=== PATIENT | male | born 1975 | race Caucasian/White ===

== ENCOUNTER → 2020-01-03 09:54 | Outpatient (BNVA) | payer BC, SELFPAY | PROVIDERS: Family Provider Family Medicine; PCP Family Medicine; Visit Provider Nurse Practitioner | DX: F33.1 Major depressive disorder, recurrent, moderate (principal); F41.0 Panic disorder [episodic paroxysmal anxiety]; F41.1 Generalized anxiety disorder; F43.12 Post-traumatic stress disorder, chronic | CPT/HCPCS: 99214 ==

== ENCOUNTER 2020-03-18 07:22 | Outpatient (CLI) | payer BC, SELFPAY ==
--- NOTE | 2020-03-18 07:40 | NMCV_ITS ---
NM tiarra perf SPECT r/s* [id number] Miguel Ambrosio Age: 45 Gender: M : 1975 Exam Date: 03/18/2020 08:39 Ordering Phys: Aisha Luciano MD ([email or web address]) Technologist: RAQUEL Grayson Exam Location: [facility] Indications: SOB STRESS TEST [facility] IMAGE PROTOCOL Rest/Stress 1 isc Radiopharmaceutical Dose (mCi) Administration Site Administered by Rest: Tc-99m 10.8 IV RAQUEL Alonso Sestamibi Stress:Tc-99m 32.3 IV RAQUEL Alonso Sestamibi Rest: 18-Mar-2020 60 Discovery 630 Stress: 18-Mar-2020 15 Discovery 630 Radiopharmaceutical was injected at 85 % maximum heart rate. Images obtained in supine and prone position. SPECT RESULTS Technical Quality: Excellent Raw Data Analysis: Normal Image Corrections: No attenuation or motion correction applied Summed Stress Score: 0 Summed Rest Score: 0 Summed Difference Score: 0 PERFUSION FINDINGS Small area of basal inferior inferoseptal wall with decreased tracer uptake noted at the rest which showed mild reversibility on the stress images, in the absence of wall motion abnormality most likely it is an artifact. We cannot rule out ischemia as well therefore clinical correlation advised. FUNCTIONAL RESULTS (calculated via Gated SPECT) Stress Image LV EF (%): 72 Stress EDV (mL):110 TID: 0.74 Stress ESV (mL):31 Rest Image LV EF (%): 72 FUNCTIONAL FINDINGS: There is normal left ventricular systolic function. IMPRESSIONS Small area of basal inferior inferoseptal wall with decreased tracer uptake noted at the rest which showed mild reversibility on the stress images, in the absence of wall motion abnormality most likely it is an artifact. We cannot rule out ischemia as well therefore clinical correlation advised. Aisha Luciano MD (Electronically Signed) Final Date: 18 March 2020 15:00 S
--- NOTE | 2020-03-18 07:40 | ECG_ITS ---
NAME OF STUDY: EXERCISE SESTAMIBI STRESS TEST INDICATION: Chest Pain; Shortness of Breath EXERCISE DATA: The patient was exercised by Jaison protocol. Baseline heart rate was 62 beats per minute. Baseline blood pressure was 121/78 millimeters of mercury. Target heart rate was 177 beats per minute. Maximum heart rate achieved was 152, which was 85% of the target heart rate. Maximum blood pressure was 170/85 millimeters of mercury. Total exercise time was 11 minutes 56 seconds. Maximum METs achieved was 10.5, maximum VO2 was 36.8. The reason for ending the test was maximum effort achieved. The patient complained of shortness of breath during the stress test, which then resolved at the end of the test. ELECTROCARDIOGRAM: BASELINE: Showed sinus rhythm, normal axis, inferolateral nonspecific ST-T changes at the baseline noted. EXERCISE: At the peak exercise level, no significant ST-T changes more than what is present at the baseline suggestive of ischemia noted. RECOVERY: During the recovery period, heart rate dropped appropriately. No significant ST-T changes in the recovery suggestive of ischemia noted. CONCLUSION: 1. Exercise capacity good. 2. Heart rate response was appropriate. 3. Blood pressure response was appropriate. 4. Symptoms not suggestive of ischemia. 5. Electrocardiogram portion of the stress test was not suggestive of ischemia. Electronically Signed On 03-21-2020 18:07:10 CDT by Aisha Luciano M.D. [email or web address]
--- NOTE | 2020-03-18 07:52 | USCV_ITS ---
Ambrosio Rivera Age: 45 Gender: M : 1975 Exam Date: 03/18/2020 07:59 Ordering Phys: Aisha Luciano MD ([email or web address]) Technologist: Nel Cohen Exam Location: [facility] [place] Indication: SOB BP: 112 / 59 HR: 67 Rhythm: Sinus Technical Quality: Adequate MEASUREMENTS (Male / Female) Normal Values 2D ECHO LV Diastolic Diameter PLAX 4.0 cm 4.2 - 5.9 / 3.9 - 5.3 cm LV Systolic Diameter PLAX 2.9 cm LV Chamber Size 4.4 cm IVS Diastolic Thickness 1.4 cm 0.6 - 1.0 / 0.6 - 0.9 cm IVS Systolic Thickness 1.1 cm LVPW Diastolic Thickness 2.0 cm 0.6 - 1.0 / 0.6 - 0.9 cm LVPW Systolic Thickness 1.8 cm RV Chamber Size 2.9 cm LVOT Diameter 2.0 cm LV Ejection Fraction 2D Teich 54.5 % LV Ejection Fraction MOD 2C 72.2 % LV Ejection Fraction 2C AL 72.8 % LA Diameter 4.5 cm LA Width 3.3 cm LA Height 4.1 cm RA Width 2.3 cm RA Height 3.6 cm Aorta at Sinotubular Diameter 2.6 cm M-MODE LV Diastolic Diameter MM 5.0 cm 4.2 - 5.9 / 3.9 - 5.3 cm LV Systolic Diameter MM 3.1 cm LV Ejection Fraction MM Teich 68.2 % IVS Diastolic Thickness MM 0.6 cm 0.6 - 1.0 / 0.6 - 0.9 cm IVS Systolic Thickness MM 0.8 cm LVPW Diastolic Thickness MM 0.9 cm 0.6 - 1.0 / 0.6 - 0.9 cm LVPW Systolic Thickness MM 1.4 cm Aortic Annulus Diameter 2.9 cm LA Ao Ratio MM 1.6 MV E Point Septal Separation 0.7 cm DOPPLER AV Peak Velocity 116.0 cm/s LVOT Peak Velocity 107.0 cm/s AV Area Cont Eq vti 2.7 cm squared AV Area Cont Eq pk 3.0 cm squared MV Area PHT 4.4 cm squared Mitral E to A Ratio 1.4 MV E' Velocity 20.0 cm/s Mitral E to MV E' Ratio 4.6 Mitral E to LV E' Lateral Ratio 3.8 Mitral E to LV E' Septal Ratio 5.9 TR Peak Velocity 223.0 cm/s TR Peak Gradient 19.9 mmHg TV Peak E Velocity 68.0 cm/s Right Atrial Pressure 3.0 mmHg Pulmonary Artery Systolic Pressu 22.9 mmHg PV Peak Velocity 75.0 cm/s RV Acceleration Time 0.2 s RV Ejection Time 0.4 s RV AcT/ET 0.6 FINDINGS Left Ventricle Normal left ventricular size, systolic function and wall thickness, with no regional wall motion abnormalities. Normal left ventricular wall thickness. Normal diastolic filling pattern. Left ventricular ejection fraction is estimated at 60 %. Right Ventricle The right ventricle is normal in size and function. Right Atrium The right atrium is normal in size. Left Atrium The left atrium is normal in size. Mitral Valve Structurally normal mitral valve without significant stenosis or prolapse. There is no mitral regurgitation. Aortic Valve Structurally normal aortic valve without significant sclerosis or stenosis. There is no aortic regurgitation. Tricuspid Valve Structurally normal tricuspid valve without significant stenosis or regurgitation. Pulmonary artery systolic pressure is normal. Pulmonic Valve Structurally normal pulmonic valve without significant stenosis. There is no pulmonic regurgitation. Pericardium Normal pericardium without effusion. Aorta Normal ascending aorta dimension. CONCLUSIONS Normal transthoracic echocardiogram. There are no prior echocardiogram studies to compare. Dr. Mikhail Fraser MD (Electronically Signed) Final Date: 18 March 2020 10:18 S
[2020-03-18 07:53] VITALS: BMI 33.7
[2020-03-18 09:45] VITALS: BP 122/84; PULSE 99
== END 2020-03-18 07:23 | disposition home or self-care (01) ==
LOC: RAD 07:28
PROVIDERS: PCP Family Medicine; Visit Provider Internal Medicine Cardiovascular Disease
DX: R06.02 Shortness of breath (principal); R07.9 Chest pain, unspecified
CPT/HCPCS: 78452; 93017; 93306; A9500

== ENCOUNTER → 2020-03-27 08:12 | Outpatient (BNVA) | payer BC, SELFPAY | PROVIDERS: PCP Family Medicine; Visit Provider Nurse Practitioner | DX: F43.12 Post-traumatic stress disorder, chronic (principal); F41.1 Generalized anxiety disorder; F41.0 Panic disorder [episodic paroxysmal anxiety]; F33.1 Major depressive disorder, recurrent, moderate | CPT/HCPCS: 99213 ==

== ENCOUNTER 2020-03-28 13:09 | Emergency (ER) | payer BC, SELFPAY ==
[2020-03-28] VITALS (11 sets, daily range): BP systolic 109–140; BP diastolic 63–81; PULSE 77–90; RESP 17–21; TEMP 36.6; O2SAT 95–98; BMI 33.5
--- NOTE | 2020-03-28 13:17 | ECG_ITS ---
Measurements Intervals Breese Rate: 88 P: 62 RI: 140 QRS: 26 QRSD: 113 T: 45 QT: 350 QTc: 424 SINUS RHYTHM MODERATE INTRAVENTRICULAR CONDUCTION DELAY [110+ ms QRS DURATION] Compared to ECG 05/07/2016 19:32:33 Intraventricular conduction delay now present Electronically Signed On 03-28-2020 15:18:26 CDT by Abhi Preciado M.D. [id number]
--- NOTE | 2020-03-28 13:17 | XRR_ITS ---
PROCEDURE INFORMATION: Exam: XR Chest, 1 View Exam date and time: 03/28/2020 1:53 PM Age: 45 years old Clinical indication: Type not specified; Patient HX: PT states chest pain off/on xseveral days, PT is a current smoker TECHNIQUE: Imaging protocol: XR of the chest Views: 1 view. COMPARISON: No relevant prior studies available. FINDINGS: Lungs: Unremarkable. No consolidation. Pleural space: Unremarkable. No pleural effusion. No pneumothorax. Heart/Mediastinum: Unremarkable. No cardiomegaly. Bones/joints: Unremarkable. XR/XR chest 1V portable [id number] IMPRESSION: No acute findings.
--- NOTE | 2020-03-28 13:24 | PC.NURSE ---
Urine collected and sent to lab
[2020-03-28] MEDS: morphine 4 mg/mL SDV 1 mL IVP (13:29)
[2020-03-28] MEDS: ondansetron 2 mg/ML SDV 2 mL 4 MG IVP (13:30)
[2020-03-28 13:37] LABS: Basophils % 0.4 %; Eosinophils # 0.1 10^3/uL (0.0-0.8); Eosinophils % 1.2 %; Hematocrit 45.7 % (42.0-52.0); Hemoglobin 14.5 g/dL (11.7-16.6); Lymphocytes # 2.2 10^3/uL (0.8-4.8); Lymphocytes % 20.9 %; Mean Corpuscular HGB Conc 31.7 g/dL (30.0-36.0); Mean Corpuscular Volume 94.4 fL (80-94); Mean Platelet Volume 11.9 fL (7.4-10.4); Monocytes # 0.8 10^3/uL (0.2-0.9); Monocytes % 7.1 %; Neutrophils # 7.5 10^3/uL (1.8-7.7); Neutrophils % 70.1 %; Nucleated Red Blood Cells % 0 %; Platelet Count 269 10^3/cmm (130-400); Red Blood Count 4.84 10^6/uL (4.1-5.3); Red Cell Distribution Width 12.4 % (12.1-15.1); White Blood Count 10.7 10^3/uL (4.0-10.0)
--- NOTE | 2020-03-28 13:38 | CTR_ITS ---
PROCEDURE INFORMATION: Exam: CT Angiography Chest With Contrast Exam date and time: 03/28/2020 3:34 PM Age: 45 years old Clinical indication: Sternal or substernal pain; Patient HX: No prior surgery - C/O cp; Additional info: Cp, dizziness TECHNIQUE: Imaging protocol: Computed tomographic angiography of the chest with intravenous contrast. 3D rendering: MIP and/or 3D reconstructed images were created by the technologist. Radiation optimization: All CT scans at this facility use at least one of these dose optimization techniques: automated exposure control; mA and/or kV adjustment per patient size (includes targeted exams where dose is matched to clinical indication); or iterative reconstruction. Contrast material: OMNI 350; Contrast volume: 95 ml; Contrast route: 18G; COMPARISON: CR XR chest 1V portable [id number] 03/28/2020 1:41 PM RADIATION DOSE METRICS: Total DLP: 564.1 mGy-cm FINDINGS: Pulmonary arteries: No pulmonary embolus or aortic dissection. Aorta: Unremarkable. No aortic aneurysm. No aortic dissection. Lungs: Mild paraseptal emphysema. Right discoid atelectasis and/or scarring. Pleural space: Unremarkable. No pneumothorax. No pleural effusion. Heart: Mild LAD calcified coronary artery disease. Lymph nodes: Unremarkable. No enlarged lymph nodes. Liver: 2.2, 2.0 and 1.2 cm low-density lesions in the left liver most consistent with benign hemangiomas versus other benign or malignant lesions. Correlation with nonemergent CT with without contrast versus ultrasound versus MRI with without contrast may be helpful for complete evaluation. Bones/joints: Unremarkable. No acute fracture. Soft tissues: Unremarkable. CT/CT angio chest PE protcl [id number] IMPRESSION: 1. Mild paraseptal emphysema. 2. 2.2, 2.0 and 1.2 cm low-density lesions in the left liver most consistent with benign hemangiomas versus other benign or malignant lesions. Correlation with nonemergent CT with without contrast versus ultrasound versus MRI with without contrast may be helpful for complete evaluation. 3. Mild LAD calcified coronary artery disease. 4. No pulmonary embolus or aortic dissection. Radiation Dose CTDIVOL = (mGy): DLP = 564.1 (mGy-cm)
[2020-03-28 13:43] LABS: D Dimer 0.43 ug/mIFEU (0-0.59)
[2020-03-28 13:49] LABS: Alanine Aminotransferase 13 U/L (0-41); Albumin Level 4.5 g/dL (3.5-5.2); Alkaline Phosphatase 73 IU/L (40-130); Anion Gap 14.8 (5-19); Aspartate Amino Transferase 16 U/L (0-40); Blood Urea Nitrogen 10 mg/dL (6-20); Calcium 9.4 mg/dL (8.5-10.5); Carbon Dioxide 23 mmol/L (22-29); Chloride 102 mmol/L (98-107); Globulin 2.3 g/dL (1.3-4.6); Glomerular Filtration Rate 73.1 mL/min (90-130); Glucose 93 mg/dL (65-115); Osmolality Calculated 278 mOsm/kg (285-295); Potassium 3.8 mmol/L (3.5-5.1); Sodium 136 mmol/L (136-145); Total Bilirubin 0.2 mg/dL (0.15-1.2); Total Protein 6.8 g/dL (6.6-8.7)
[2020-03-28 13:50] LABS: Troponin(5th) Baseline 6 ng/L (0-15)
--- NOTE | 2020-03-28 13:53 | PC.NURSE ---
Patient requested mouth swabs. Checked and okayed with doctor. Two mouth swabs given with a small dipping cup of water..
--- NOTE | 2020-03-28 14:01 | ED_ITS ---
HPI - Chest Pain General: Chief Complaint: Chest Pain Stated Complaint: CHEST PAIN Time Seen by Provider: 03/28/20 13:09 Source: patient and EMS Mode of arrival: EMS Limitations: no limitations History of Present Illness: HPI narrative: 45-year-old male with a recent history of a myocardial infarction a few months ago presents to the emergency department with chest pain that started about 30 minutes prior to presentation. Chest pain is retrosternal with no radiation. He denies nausea or vomiting. No known aggravating or relieving factors. He was given 324 mg of aspirin, and nitro and a Nitropaste by the ambulance crew. complaint: chest pain Pertinent past history: coronary artery disease and prior ME Onset (ago): minute(s) (30) Timing of current episode: constant Prior episodes: No Onset: during rest Pain location: substernal Pain radiation: none Severity: severe Relieving factors: nothing Exacerbating factors: nothing Associated symptoms: Reports nausea; Deny no associated symptoms, abdominal pain, diaphoresis, dyspnea or palpitations Review of Systems General: Reports: 10 or more systems reviewed and unremarkable except in HPI and below Const: Denies: diaphoresis Eyes: Denies: change in vision or blurry vision ENMT: Denies: throat pain, enlarged tonsils, odynophagia, hoarseness, mouth pain or swelling of lips/tongue Card: Reports: chest pain; Denies: palpitations, irregular heart rhythm, edema or swelling of feet/ankles Resp: Denies: dyspnea GI: Reports: nausea; Denies: abdominal pain : Denies: flank pain, dysuria, urinary frequency, urinary urgency or urinary hesitancy Musc: Denies: neck pain, back pain or extremity swelling Skin/Breast: Denies: rash, pruritus or erythema Neuro: Denies: headache(s), numbness in extremities or weakness in extremities Endo: Denies: polyuria, polydipsia or tired all the time [facility] PFSH: Medical History (Updated 03/28/20 @ 16:57 by Mildred Hair MD, [facility] [place]) Generalized anxiety disorder Major depressive disorder, recurrent, moderate Panic disorder [episodic paroxysmal anxiety] Post-traumatic stress disorder, chronic Shortness of breath Social History Smoking and tobacco status: current every day smoker cigarettes Packs smoked per day: 1 Smoking risk assessment/counseling performed?: Yes Tobacco counseling given: counseling >3 minutes Physical Exam Const: COMMON NORMALS: no acute distress, average body habitus, patient oriented x3, no limitations, healthy appearing, alert and well nourished Eye: COMMON NORMALS: Equal, round and reactive pupils present, EOMs intact bilaterally, conjunctivae normal and no scleral icterus CONJUNCTIVA: Yes conjunctivae normal PUPIL: Yes Equal, round and reactive pupils present Neck/C-Spine: COMMON NORMALS: no meningeal signs and no JVD Resp: COMMON NORMALS: normal respiratory effort, No retractions, No use of accessory muscles, clear to auscultation bilaterally and percussion normal AUSCULTATION: clear to auscultation bilaterally PERCUSSION: percussion normal Cardio: COMMON NORMALS: no JVD, regular rate, regular rhythm, S1 normal heart sound present, S2 normal heart sound present, No gallops present (Cardio), No clicks present (Cardio), No murmurs present (Cardio), No rub (Cardio) and Peripheral pulses 2+ throughout RATE: regular rate RHYTHM: regular rhythm HEART SOUNDS: S1 normal heart sound present and S2 normal heart sound present PERIPHERAL PULSES: Peripheral pulses 2+ throughout GI: COMMON NORMALS: Normal to inspection, nondistended, normoactive bowel sounds present, Soft to palpation, non-tender, No hepatosplenomegaly present, no masses and no bruits PALPATION: Yes Soft to palpation and Yes No hepatosplenomegaly present : COMMON NORMALS: Yes no CVA tenderness BLADDER/KIDNEY EXAM: Yes no CVA tenderness Back/Pelvis: COMMON NORMALS: no CVA tenderness Extremity: COMMON NORMALS: normal to inspection, full ROM, capillary refill normal, no calf tenderness and no pedal edema Neuro: COMMON NORMALS: patient oriented x3 SENSORIUM/ORIENTATION: Yes alert MENINGEAL SIGNS: Yes no meningeal signs Skin: COMMON NORMALS: no rashes or lesions noted, no wounds, turgor normal, no jaundice, no petechiae and no mottling GENERAL SKIN EXAM: no rashes or lesions noted and turgor normal Course Reevaluation(s): Reevaluation #1: Discussed his lab and imaging findings with the patient and his . Negative for acute findings. Negative high- sensitivity troponin x2. 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 They voiced understanding and are in agreement with the plan. Time: 16:56 Vital Signs: Vital signs: Vital Signs Temperature 97.8 F 03/28/20 17:11 Pulse Rate 77 03/28/20 17:11 Respiratory Rate 18 03/28/20 17:11 Blood Pressure 126/75 03/28/20 17:11 Pulse Oximetry 96 03/28/20 17:11 MDM - Chest Pain MDM Narrative: Medical decision making narrative: 45-year-old male who presented to the emergency department with chest pain. Cardiac evaluation is unremarkable with negative high-sensitivity troponins and 2. He is discharged home with no new orders. Lab Data: Labs: Lab Results 03/28/20 03/28/20 03/28/20 Range/Units 12:10 12:10 12:10 WBC 10.7 H (4.0-10.0) 10^3/ uL RBC 4.84 (4.1-5.3) 10^6/u L Hgb 14.5 (11.7-16.6) g/dL Hct 45.7 (42.0-52.0) % MCV 94.4 H (80-94) fL MCH 30.0 (28.0-34.0) pg MCHC 31.7 (30.0-36.0) g/dL RDW 12.4 (12.1-15.1) % Plt Count 269 (130-400) 10^3/c mm MPV 11.9 H (7.4-10.4) fL Neut % (Auto) 70.1 % Lymph % (Auto) 20.9 % [place] % (Auto) 7.1 % Eos % (Auto) 1.2 % Baso % (Auto) 0.4 % Neut # (Auto) 7.5 (1.8-7.7) 10^3/u L Lymph # (Auto) 2.2 (0.8-4.8) 10^3/u L [place] # (Auto) 0.8 (0.2-0.9) 10^3/u L Eos # (Auto) 0.1 (0.0-0.8) 10^3/u L Baso # (Auto) 0.0 (0.0-0.1) 10^3/u L Nucleated RBC % (a uto) 0 % Nucleated RBCs # 0.0 /100WBC D-Dimer 0.43 (0-0.59) ug/mIFE U Sodium 136 (136-145) mmol/L Potassium 3.8 (3.5-5.1) mmol/L Chloride 102 (98-107) mmol/L Carbon Dioxide 23 (22-29) mmol/L Anion Gap 14.8 (5-19) BUN 10 (6-20) mg/dL Creatinine 1.1 (0.7-1.2) mg/dL GFR Calculation 73.1 L (90-130) mL/min Glucose 93 (65-115) mg/dL Calculated Osmolal ity 278 L (285-295) mOsm/k g Calcium 9.4 (8.5-10.5) mg/dL Total Bilirubin 0.2 (0.15-1.2) mg/dL AST 16 (0-40) U/L ALT 13 (0-41) U/L Alkaline Phosphata se 73 (40-130) IU/L Troponin T Baselin e (0-15) ng/L Troponin T 120 Min lu (0-15) ng/L Delta Troponin T (0-10) ABS# Total Protein 6.8 (6.6-8.7) g/dL Albumin 4.5 (3.5-5.2) g/dL Globulin 2.3 (1.3-4.6) g/dL Lipase (13-60) U/L 03/28/20 03/28/20 03/28/20 Range/Units 12:10 13:10 14:43 WBC (4.0-10.0) 10^3/ uL RBC (4.1-5.3) 10^6/u L Hgb (11.7-16.6) g/dL Hct (42.0-52.0) % MCV (80-94) fL MCH (28.0-34.0) pg MCHC (30.0-36.0) g/dL RDW (12.1-15.1) % Plt Count (130-400) 10^3/c mm MPV (7.4-10.4) fL Neut % (Auto) % Lymph % (Auto) % [place] % (Auto) % Eos % (Auto) % Baso % (Auto) % Neut # (Auto) (1.8-7.7) 10^3/u L Lymph # (Auto) (0.8-4.8) 10^3/u L [place] # (Auto) (0.2-0.9) 10^3/u L Eos # (Auto) (0.0-0.8) 10^3/u L Baso # (Auto) (0.0-0.1) 10^3/u L Nucleated RBC % (a uto) % Nucleated RBCs # /100WBC D-Dimer (0-0.59) ug/mIFE U Sodium (136-145) mmol/L Potassium (3.5-5.1) mmol/L Chloride (98-107) mmol/L Carbon Dioxide (22-29) mmol/L Anion Gap (5-19) BUN (6-20) mg/dL Creatinine (0.7-1.2) mg/dL GFR Calculation (90-130) mL/min Glucose (65-115) mg/dL Calculated Osmolal ity (285-295) mOsm/k g Calcium (8.5-10.5) mg/dL Total Bilirubin (0.15-1.2) mg/dL AST (0-40) U/L ALT (0-41) U/L Alkaline Phosphata se (40-130) IU/L Troponin T Baselin e 6 (0-15) ng/L Troponin T 120 Min lu 6.00 (0-15) ng/L Delta Troponin T 0 (0-10) ABS# Total Protein (6.6-8.7) g/dL Albumin (3.5-5.2) g/dL Globulin (1.3-4.6) g/dL Lipase 20 (13-60) U/L Imaging Data^: CXR: Radiologist's impression: [address] [address] XRay Report Signed Patient: Ambrosio Rivera #: [id number] : 1975Acct#:[id number] Age/Sex: 45 / MADM Date: 03/28/20 Loc: ERRoom/Bed: Attending Dr: Ordering Provider/Ordering MD: Mildred Hair MD, [facility] [place] Date of Service: 03/28/20 Procedure(s): XR chest 1V portable [id number] Accession Number(s): [id number] Report Number: [id number] PROCEDURE INFORMATION: Exam: XR Chest, 1 View Exam date and time: 03/28/2020 1:53 PM Age: 45 years old Clinical indication: Type not specified; Patient HX: PT states chest pain off/on xseveral days, PT is a current smoker TECHNIQUE: Imaging protocol: XR of the chest Views: 1 view. COMPARISON: No relevant prior studies available. FINDINGS: Lungs: Unremarkable. No consolidation. Pleural space: Unremarkable. No pleural effusion. No pneumothorax. Heart/Mediastinum: Unremarkable. No cardiomegaly. Bones/joints: Unremarkable. XR/XR chest 1V portable [id number] IMPRESSION: No acute findings. Dictated By:Antoine West MD Signed By:Antoine West MDSigned Date/Time:03/28/201446 DD/ 144 CTA Chest: Radiologist's impression: [place] [address] CT Scan Report Signed Patient: Ambrosio Rivera #: [id number] : 1975Acct#:[id number] Age/Sex: 45 / MADM Date: 03/28/20 Loc: [facility]/Bed: Attending Dr: Ordering Provider/Ordering MD: Mildred Hair MD, [facility] [place] Date of Service: 03/28/20 Procedure(s): CT angio chest PE protcl [id number] Accession Number(s): [id number] Report Number: [id number] PROCEDURE INFORMATION: Exam: CT Angiography Chest With Contrast Exam date and time: 03/28/2020 3:34 PM Age: 45 years old Clinical indication: Sternal or substernal pain; Patient HX: No prior surgery - C/O cp; Additional info: Cp, dizziness TECHNIQUE: Imaging protocol: Computed tomographic angiography of the chest with intravenous contrast. 3D rendering: MIP and/or 3D reconstructed images were created by the technologist. Radiation optimization: All CT scans at this facility use at least one of these dose optimization techniques: automated exposure control; mA and/or kV adjustment per patient size (includes targeted exams where dose is matched to clinical indication); or iterative reconstruction. Contrast material: OMNI 350; Contrast volume: 95 ml; Contrast route: 18G; COMPARISON: CR XR chest 1V portable [id number] 03/28/2020 1:41 PM RADIATION DOSE METRICS: Total DLP: 564.1 mGy-cm FINDINGS: Pulmonary arteries: No pulmonary embolus or aortic dissection. Aorta: Unremarkable. No aortic aneurysm. No aortic dissection. Lungs: Mild paraseptal emphysema. Right discoid atelectasis and/or scarring. Pleural space: Unremarkable. No pneumothorax. No pleural effusion. Heart: Mild LAD calcified coronary artery disease. Lymph nodes: Unremarkable. No enlarged lymph nodes. Liver: 2.2, 2.0 and 1.2 cm low-density lesions in the left liver most consistent with benign hemangiomas versus other benign or malignant lesions. Correlation with nonemergent CT with without contrast versus ultrasound versus MRI with without contrast may be helpful for complete evaluation. Bones/joints: Unremarkable. No acute fracture. Soft tissues: Unremarkable. CT/CT angio chest PE protcl [id number] IMPRESSION: 1. Mild paraseptal emphysema. 2. 2.2, 2.0 and 1.2 cm low-density lesions in the left liver most consistent with benign hemangiomas versus other benign or malignant lesions. Correlation with nonemergent CT with without contrast versus ultrasound versus MRI with without contrast may be helpful for complete evaluation. 3. Mild LAD calcified coronary artery disease. 4. No pulmonary embolus or aortic dissection. Radiation Dose CTDIVOL = (mGy): DLP = 564.1 (mGy-cm) Dictated By:Antoine West MD Signed By:Antoine West MDSigned Date/Time:03/28/201636 DD/ 35 EKG Data^: EKG 1: Attestation: I personally reviewed and interpreted this EKG as follows: EKG interpretation date: 03/28/20 EKG interpretation time: 13:21 Prior EKG tracings: not available for review Interpretation: Sinus rhythm. Heart rate 88 beats per minutes. No ST changes. EKG 2: Attestation: I personally reviewed and interpreted this EKG as follows: EKG interpretation date: 03/28/20 EKG interpretation time: 15:30 Prior EKG tracings: available for review Interpretation: Normal sinus rhythm. Heart rate [address] changes. Normal axis. Unchanged from earlier today. Discharge Plan Discharge Patient Disposition: Home, Self-Care Clinical Impression: Chest pain Qualifiers: Chest pain type: unspecified Qualified Code(s): R07.9 - Chest pain, unspecified Condition: Stable Prescriptions: Continued ropinirole 1 mg tablet 0.5 mg PO TID RF: 0 ropinirole 2 mg tablet 2 mg PO BEDTIME RF: 0 fluoxetine [Prozac] 40 mg capsule 40 mg PO DAILY Qty: 30 RF: 2 acetaminophen-codeine 300-30 mg tablet 1 tab PO TID PRN (Reason: Pain) RF: 0 albuterol sulfate 2.5 mg /3 mL (0.083 %) solution for nebulization 2.5 mg INHALATION QID PRN (Reason: Shortness Of Breath) RF: 0 albuterol sulfate [ProAir HFA] 90 mcg/actuation HFA aerosol inhaler 2 puff INHALATION Q6H PRN (Reason: Shortness Of Breath) RF: 0 Flovent HFA 220 mcg/actuation HFA aerosol inhaler 1 puff INHALATION BID RF: 0 fluticasone propionate [Flonase Allergy Relief] 50 mcg/actuation spray,suspension 1 spray INTRANASAL DAILY RF: 0 meloxicam 15 mg tablet 15 mg PO DAILY RF: 0 omeprazole 20 mg capsule,delayed release(DR/EC) 20 mg PO DAILY RF: 0 prazosin 5 mg capsule 5 mg PO BID RF: 0 isosorbide mononitrate 30 mg tablet extended release 24 hr 15 mg PO BID Qty: 90 RF: 3 Chantix 1 mg Tablet 1 mg PO BID RF: 0 Discharge Orders: Discharge Order (Routine); Ordered 03/28/20 Ordered By: Mildred Hair Referrals: Aisha Luciano MD [Physician] - 1-3 days Tamara Crespo MD [Primary Care Provider] - 4-7 days Patient Instructions: Chest Pain (ED) Activity Restrictions/Additional Instructions: Return for any new or worsening symptoms. Follow-up with your estimator paperboard boxes in the next 3 days and with your primary care provider within 1 week. Continue home medications as prescribed. Discharge Date/Time: 06/13/20 17:12 Coding Level of Care Code ED Mechanical Project Manager for Chg Fwd Exam Comprehensive
[2020-03-28 14:08] LABS: Lipase 20 U/L (13-60)
[2020-03-28 15:13] LABS: Troponin 5 2HR Delta 0 ABS# (0-10)
--- NOTE | 2020-03-28 15:17 | ECG_ITS ---
Measurements Intervals [place] Rate: 88 P: 62 MD: 140 QRS: 26 QRSD: 113 T: 45 QT: 350 QTc: 424 SINUS RHYTHM MODERATE INTRAVENTRICULAR CONDUCTION DELAY [110+ ms QRS DURATION] Compared to ECG 05/07/2016 19:32:33 Intraventricular conduction delay now present Electronically Signed On 03-29-2020 21:07:52 CDT by Abhi Preciado M.D. [email or web address]
[2020-03-28] MEDS: iohexol 350 mg/mL 100 mL Btl IV (17:37)
--- NOTE | 2020-03-28 19:17 | ECG_ITS ---
Measurements Intervals [place] Rate: 84 P: 55 ND: 147 QRS: 24 QRSD: 93 T: 44 QT: 366 QTc: 435 SINUS RHYTHM Compared to ECG 03/28/2020 13:21:27 Intraventricular conduction delay no longer present Electronically Signed On 03-29-2020 21:08:10 CDT by Abhi Preciado M.D. [email or web address]
--- NOTE | 2020-04-01 09:23 | DCPLANNER ---
data center manager had message to schedule a follow up appointment for patient with [facility]. data center manager called [facility], spoke with Elysia, gave clinic patients information. data center manager was told that patients information would be printed and reviewed. Clinic will call patient with appointment information.
--- NOTE | 2020-04-02 08:29 | DCPLANNER ---
Patient has a follow up appointment for patient with [facility], scheduled for Tuesday, April 07, 2020 at 3:[address] Luciano. Clinic will call patient with appointment information.
--- NOTE | 2020-04-10 14:01 | DCPLANNER ---
Patient did attend appointment scheduled for 04.07.20 with [facility]. Patient did attend the appointment.
== END 2020-03-28 17:12 | disposition home or self-care (01) ==
PROVIDERS: Emergency Provider Family Medicine; PCP Family Medicine
DX: R07.9 Chest pain, unspecified (principal); F17.210 Nicotine dependence, cigarettes, uncomplicated
CPT/HCPCS: 12345; 71045; 71275; 80053; 83690; 84484; 85025; 85378; 93005; 96374; 96375; 99283; 99284; J2270; J2405; Q9967

== ENCOUNTER → 2020-06-12 09:54 | Outpatient (BNVA) | payer BC, SELFPAY | PROVIDERS: PCP Family Medicine; Visit Provider Internal Medicine | DX: Z11.59 Encounter for screening for other viral diseases (principal) | CPT/HCPCS: 87635 ==

== ENCOUNTER 2020-06-15 07:51 | Outpatient (CLI) | payer BC, SELFPAY ==
--- NOTE | 2020-06-15 14:43 | PFTS_ITS ---
Date of Study:06/15/20 Date of Dictation: MECHANICS: Forced vital capacity (FVC) is normal. Forced expiratory volume in one second (FEV1) is normal. FEV1/FVC is normal. FLOW VOLUME LOOP: Scooping at lower lung volumes. LUNG VOLUMES: Total lung capacity (TLC) is normal. Residual volume (RV) is increased. DIFFUSING CAPACITY FOR CARBON MONOXIDE: Mild reduced. INTERPRETATION: The spirometry is normal. There is no significant postbronchodilator response. The flow volume loop is consistent with small airways disease. Lung volumes are consistent with air trapping. Gas exchange (DLCO) is mildly reduced. MTDD
== END 2020-06-15 07:52 | disposition home or self-care (01) ==
LOC: RT 07:51
PROVIDERS: PCP Family Medicine; Visit Provider Internal Medicine Pulmonary Disease
DX: J43.9 Emphysema, unspecified (principal); F17.290 Nicotine dependence, other tobacco product, uncomplicated; K76.9 Liver disease, unspecified; R06.02 Shortness of breath; F41.1 Generalized anxiety disorder
CPT/HCPCS: 94060; 94726; 94729; J7611

== ENCOUNTER 2020-08-18 15:03 | Outpatient (CLI) | payer BC, SELFPAY ==
--- NOTE | 2020-08-18 15:14 | MRR_ITS ---
PROCEDURE INFORMATION: Exam: MR Abdomen Without Contrast; Liver Exam date and time: 08/18/2020 3:26 PM Age: 45 years old Clinical indication: Condition or disease; Liver condition; Hepatomegaly or mass; Patient HX: History of liver mass -no symptoms; Additional info: Liver mass/hepatomegaly TECHNIQUE: Imaging protocol: MR Abdomen without contrast. Exam focused on the liver. COMPARISON: CT abdomen pelvis w con* [id number] 12/04/2016 7:56 PM FINDINGS: Lungs: Visualized lungs are clear. Pleura: No pleural effusion. Heart: Visualized portions of the heart are unremarkable. Liver: There are 4 masses in the liver that are low on T1 and high on T2 and show peripheral puddling enhancement with central filling on the postcontrast sequences. Findings are consistent with multiple hemangiomas. The largest measures 2.4 x 2.2 cm (series 9, image 25). These are stable dating back to 12/04/2016. Gallbladder and bile ducts: Stable findings consistent with a previous cholecystectomy. No biliary ductal dilatation. Pancreas: The pancreas is unremarkable. No pancreatic ductal dilatation. Spleen: The spleen is unremarkable. Adrenals: The right and left adrenal glands are unremarkable. Kidneys and ureters: The right kidney is unremarkable. Simple cyst in the left kidney measuring 9.5 mm (series 6, image 10). The visualized right and left ureters are unremarkable. Stomach and bowel: The visualized bowel is unremarkable. Intraperitoneal space: No ascites. Vasculature: No evidence for aortic aneurysm or aortic dissection. Hepatic veins, portal veins, splenic vein, and SMV are patent. Lymph nodes: No lymphadenopathy. Soft tissues: No acute abnormality in the extra-abdominal soft tissues. MR/MR abdomen wo/w con* [id number] IMPRESSION: 1. Multiple hepatic foci consistent with hepatic hemangiomas. Findings are stable dating back to 12/04/2016. 2. Incidental/nonacute findings are listed in the report. COMMENTS: Consistent with the [employer]'s Incidental Findings Committee white paper (J Am Dewey Radiol 2018): Any incidental renal lesion less than 1 cm or classified as too small to characterize, or any incidental cystic renal lesion characterized as simple-appearing, is likely benign. No follow-up imaging is recommended for these lesions per consensus recommendations based on imaging criteria.
== END 2020-08-18 15:04 | disposition home or self-care (01) ==
LOC: RADWPI 15:05
PROVIDERS: PCP Family Medicine; Visit Provider Family Medicine
DX: R16.0 Hepatomegaly, not elsewhere classified (principal)
CPT/HCPCS: 74183; A9579

== ENCOUNTER → 2021-01-06 16:42 | Outpatient (BNVA) | payer OTHER, SELFPAY | PROVIDERS: PCP Family Medicine; Visit Provider Nurse Practitioner Family | DX: Z20.822 Contact with and (suspected) exposure to COVID-19 (principal) | CPT/HCPCS: 87635 ==

== ENCOUNTER 2021-12-02 17:19 | Emergency (ER) | payer MEDICAID, SELFPAY ==
[2021-12-02 17:23] VITALS: BP 144/95; PULSE 81; RESP 16; TEMP 36.9; O2SAT 99; BMI 33.2
--- NOTE | 2021-12-02 17:34 | ED_ITS ---
HPI - Eye Problem General: Chief complaint: Eye Problems Stated complaint: eyes itch an burn Time Seen by Provider: 12/02/21 17:28 History of Present Illness: Patient is a 46-year-old male who comes to the ED with bilateral eye redness. Patient says both eyes are very itchy as well. Symptoms started approximately 1 week ago. He is having a lot of itching in both eyes and says his left eye though is more red itchy and funk a little. He also has a little bit of purulent discharge on the left eye in the mornings. Patient was using some previously prescribed TobraDex eye ointment for the past couple days and it has not helped. Endorses some blurry vision with his eyes watering but denies any other vision changes or eye pain. Denies any foreign body in eye to cause symptoms. Associated symptoms: Denies fever(s), headache(s), nausea, neck pain or vomiting Review of Systems Const: Denies: fever(s), chills or fatigue Eyes: Reports: blurry vision (Vision left eye from his eyes watering.), eye discharge (left eye, purulent discharge in mornings) and eye redness (bilateral eyes); Denies: change in vision or eye discomfort ENMT: Denies: throat pain, odynophagia, nasal discharge or nasal congestion Card: Denies: chest pain, palpitations, edema, swelling of feet/ankles, dyspnea on exertion or orthopnea Resp: Denies: dyspnea, productive cough or non-productive cough GI: Denies: abdominal pain, nausea, vomiting, diarrhea, constipation or hematochezia : Denies: flank pain, difficulty urinating, dysuria or hematuria Musc: Denies: neck pain, back pain or extremity swelling Skin/Breast: Denies: rash or new lesions Neuro: Denies: headache(s), numbness in extremities or weakness in extremities PFSH ED PFSH: Medical History Chest pain Generalized anxiety disorder HTN (hypertension), benign Major depressive disorder, recurrent, moderate Panic disorder [episodic paroxysmal anxiety] Post-traumatic stress disorder, chronic Shortness of breath Family History Other CAD (coronary artery disease) Cancer Dementia Diabetes Family history of premature coronary artery disease Hyperlipidemia Hypertension Lung disease Stroke Denies family history of Chronic kidney disease (CKD) Social History Smoking and tobacco status: current every day smoker cigarettes Packs smoked per day: 0.5 Years cigarettes smoked: 30 Quit status (tobacco): considering quitting Second hand smoke exposure: Yes Smoking risk assessment/counseling performed?: Yes Tobacco counseling given: counseling >3 minutes Alcohol intake: never Lives independently: Yes Household members: spouse Housing: House Marital status: Life Partner Current occupational status: unemployed Pets and animals: Yes History of recent travel: No ([facility]) Current gender identity: Male Physical Exam Const: COMMON NORMALS: no acute distress, patient oriented x3 and alert GENERAL APPEARANCE: cooperative and comfortable HENMT: COMMON NORMALS: normocephalic HEAD & SCALP: normocephalic MOUTH: Normal oral and palatal mucosa present THROAT: posterior oropharynx normal and uvula midline Eye: COMMON NORMALS: Equal, round and reactive pupils present PERIORBITAL: periorbital findings normal EYELID: eyelids normal CONJUNCTIVA: Yes conjunctival abnormal positive right conjunctival injection diffuse and positive left (Left eye more red than right) conjunctival injection diffuse CORNEA: Yes corneas normal (Right right eye fluorescein eye exam was normal) and fluorescein used (left eye-Small linear abrasion noted after fluorescein with lamp exam) PUPIL: Yes Equal, round and reactive pupils present OTHER: No foreign body seen. Neck/C-Spine: COMMON NORMALS: supple GENERAL: Yes normal visual inspection Resp: COMMON NORMALS: normal respiratory effort, No retractions, No use of accessory muscles and clear to auscultation bilaterally AUSCULTATION: clear to auscultation bilaterally Cardio: COMMON NORMALS: regular rate, regular rhythm, S1 normal heart sound present, S2 normal heart sound present, No gallops present (Cardio), No clicks present (Cardio), No murmurs present (Cardio) and Peripheral pulses 2+ throughout RATE: regular rate RHYTHM: regular rhythm HEART SOUNDS: S1 normal heart sound present and S2 normal heart sound present PERIPHERAL PULSES: Peripheral pulses 2+ throughout GI: COMMON NORMALS: Normal to inspection, nondistended, normoactive bowel sounds present, Soft to palpation, non-tender and no masses PALPATION: Yes Soft to palpation : COMMON NORMALS: Yes no CVA tenderness BLADDER/KIDNEY EXAM: Yes no CVA tenderness Back/Pelvis: COMMON NORMALS: no CVA tenderness Extremity: COMMON NORMALS: normal to inspection Neuro: COMMON NORMALS: patient oriented x3 SENSORIUM/ORIENTATION: Yes alert Skin: GENERAL SKIN EXAM: dry skin Course Vital Signs: Vital signs: Vital Signs Temperature 98.5 F 12/02/21 17:23 Pulse Rate 81 12/02/21 17:23 Respiratory Rate 16 12/02/21 17:23 Blood Pressure 144/95 12/02/21 17:23 Pulse Oximetry 99 12/02/21 17:23 MDM - Eye Problem Medical Decision Making Patient is a 46-year-old male comes to the ED with red and itchy by lateral eyes. Patient says his left eye though has gotten a lot worse and he has some purulent drainage in the mornings. He is also feeling a little bit of stinging pain in his left a. Denies any vision changes. Vitals stable. Bilateral conjunctivitis noted both eyes. No foreign body seen. Fluorescein dye exam performed in both right left eye and left eye had a linear abrasion noted. Patient was diagnosed with conjunctivitis and corneal abrasion. He was discharged home with Maxitrol eyedrops. He was told to follow-up with his do ctor in the next couple days or return to the ED for eye doctor in the next 24 to 48 hours if symptoms worsen. Patient understood and agree with plan. Discharge Plan Discharge Patient Disposition: Home Clinical Impression: Conjunctivitis Qualifiers: Conjunctivitis type: acute Acute conjunctivitis type: unspecified Laterality: bilateral Qualified Code(s): H10.33 - Unspecified acute conjunctivitis, bilateral Corneal abrasion Qualifiers: Encounter type: initial encounter Laterality: left Qualified Code(s): S05.02XA - Injury of conjunctiva and corneal abrasion without foreign body, left eye, initial encounter Condition: Stable Prescriptions: New Maxitrol 3.5mg/mL-10,000 unit/mL-0.1 % drops,suspension 2 drp ophthalmic (eye) Q8H 7 Days Qty: 5 0RF No Action ropinirole 1 mg tablet 0.5 mg PO TID 0RF ropinirole 2 mg tablet 3 mg PO BEDTIME 0RF fluoxetine [Prozac] 40 mg capsule 40 mg PO DAILY Qty: 30 2RF acetaminophen-codeine 300-30 mg tablet 1 tab PO TID PRN (Reason: Pain) 0RF albuterol sulfate 2.5 mg /3 mL (0.083 %) solution for nebulization 2.5 mg INHALATION QID PRN (Reason: Shortness Of Breath) 0RF albuterol sulfate [ProAir HFA] 90 mcg/actuation HFA aerosol inhaler 2 puff INHALATION Q6H PRN (Reason: Shortness Of Breath) 0RF meloxicam 15 mg tablet 15 mg PO DAILY 0RF omeprazole 20 mg capsule,delayed release(DR/EC) 20 mg PO DAILY 0RF prazosin 5 mg capsule 5 mg PO BID 0RF isosorbide mononitrate 30 mg tablet extended release 24 hr 15 mg PO BID Qty: 90 3RF aspirin [Adult Aspirin Regimen] 81 mg tablet,delayed release (DR/EC) 81 mg PO DAILY 0RF Bevespi Aerosphere 9-4.8 mcg HFA aerosol inhaler 2 puff INHALATION BID Qty: 10.7 5RF Chantix 1 mg Tablet 1 mg PO BID 0RF Rx Instructions: (as directed) Discharge Orders: Discharge ED (Routine); Ordered 12/02/21 Ordered By: Donald Orellana Referrals: Tamara Crespo MD [Primary Care Provider] - Discharge Diet: Regular Discharge Activity: Increase activity as tolerated Patient Instructions: Corneal Abrasion (DC), Conjunctivitis (ED) Activity Restrictions/Additional Instructions: Follow-up with medical provider as directed in the next 3 to 5 days for reevaluation. Take medications as prescribed. If symptoms start worsening or you start having vision changes return to the ED or eye doctor immediately for reevaluation. Please read and understand discharge instructions. Thank you for choosing [facility] for your healthcare needs today. Please realize this is an emergency room and that we are providing you with a medical screening exam and this may not be complete and all inclusive of all the testing and or work up that you may need to determine your ailment or severity of your illness. It is very important that you follow up as instructed or that you return to the Emergency Department should you have concerns or if your condition changes or worsens in any way. Coding Level of Care Code ED Curriculum Development Coordinator for Dylan Fwkathy Exam Comprehensive
[2021-12-02] MEDS: fluorescein 1 mg Strip EYE-BOTH (17:48)
[2021-12-02] MEDS: eye irrigation 30 mL Btl EYE-BOTH (18:13)
[2021-12-04 20:03] LABS: Quest SARS-CoV-2 RNA NOT DETECTED (NOT DETECTED)
== END 2021-12-02 18:16 | disposition home or self-care (01) ==
PROVIDERS: Emergency Provider Physician Assistant; PCP Family Medicine
DX: H10.33 Unspecified acute conjunctivitis, bilateral (principal); S05.02XA Injury of conjunctiva and corneal abrasion without foreign body, left eye, initial encounter; Z79.82 Long term (current) use of aspirin; I10 Essential (primary) hypertension; F17.210 Nicotine dependence, cigarettes, uncomplicated; Z20.822 Contact with and (suspected) exposure to COVID-19; X58.XXXA Exposure to other specified factors, initial encounter
CPT/HCPCS: 87635; 99283; 99291; 99292

== ENCOUNTER 2022-05-24 17:17 | Emergency (ER) | payer MEDICAID, SELFPAY ==
--- NOTE | 2022-05-24 17:19 | XRR_ITS ---
PROCEDURE INFORMATION: Exam: XR Left Hand Exam date and time: 05/24/2022 6:23 PM Age: 47 years old Clinical indication: Swelling; Hand; Left; Additional info: L hand swelling TECHNIQUE: Imaging protocol: Radiologic exam of the Left hand. Views: 3 or more views. COMPARISON: No relevant prior studies available. FINDINGS: Bones/joints: Normal. Soft tissues: Mild diffuse nonspecific soft tissue prominence. XR/XR hand LT min 3V* [id number] IMPRESSION: 1. No acute bony findings. 2. Mild diffuse nonspecific soft tissue prominence.
[2022-05-24 17:28] VITALS: BP 154/97; PULSE 91; RESP 16; TEMP 36.8; O2SAT 99; BMI 34.2
--- NOTE | 2022-05-24 19:58 | W.ED.GENADLT ---
Documented by User: Eulalio Cruz MD 05/24/22 20:40 HPI - General Adult General: Chief complaint: Skin/Abscess/Foreign Body Stated complaint: Left hand swollen Time Seen by Provider: 05/24/22 19:50 History of Present Illness: Patient is a 47-year-old male with a history of hypertension PTSD presenting to the emergency room with concerns of left hand swelling. Patient was cutting the thorns of rebel on Monday when he he was stuck by a rebel on his middle finger and at the base of his pinky finger. Since then, patient has noticed a boil at the base of the pinky finger on the dorsal aspect that has spread on his hand. Patient denies any fever but reports significant pain and swelling in the hand. He denies any fever or chills reports the pain that tracks up the inner aspect of his forearm. Onset:2 days ago Duration:2 days Location:home Severity:moderate Associated symptoms: Deny chest pain, dyspnea, nausea, rash, palpitations or vomiting Review of Systems Const: Denies: fever(s) or chills Eyes: Denies: change in vision ENMT: Denies: mouth pain Card: Denies: chest pain or palpitations Resp: Denies: dyspnea or non-productive cough GI: Denies: abdominal pain, nausea, vomiting or diarrhea : Denies: dysuria Musc: Reports: extremity pain (+L hand swelling and pain) Skin/Breast: Denies: rash or new lesions Neuro: Denies: weakness in extremities Psych: Reports: other (Normal mood) Jimmy/Lymph: Denies: easy bruising PFS ED PFSH: Medical History Chest pain Generalized anxiety disorder HTN (hypertension), benign Major depressive disorder, recurrent, moderate Panic disorder [episodic paroxysmal anxiety] Post-traumatic stress disorder, chronic Shortness of breath Family History Other CAD (coronary artery disease) Cancer Dementia Diabetes Family history of premature coronary artery disease Hyperlipidemia Hypertension Lung disease Stroke Denies family history of Chronic kidney disease (CKD) Social History Smoking and tobacco status: current every day smoker cigarettes Packs smoked per day: 0.5 Years cigarettes smoked: 30 Quit status (tobacco): considering quitting Second hand smoke exposure: Yes Smoking risk assessment/counseling performed?: Yes Tobacco counseling given: counseling >3 minutes Alcohol intake: never Lives independently: Yes Household members: spouse Housing: House Marital status: Life Partner Current occupational status: unemployed Pets and animals: Yes History of recent travel: No ([facility]) Current gender identity: Male Physical Exam Const: COMMON NORMALS: alert HENMT: COMMON NORMALS: atraumatic HEAD & SCALP: atraumatic MOUTH: moist mucous membranes not abnormal Eye: COMMON NORMALS: EOMs intact bilaterally and conjunctivae normal CONJUNCTIVA: Yes conjunctivae normal Neck/C-Spine: COMMON NORMALS: full ROM and supple Resp: COMMON NORMALS: normal respiratory effort and clear to auscultation bilaterally AUSCULTATION: clear to auscultation bilaterally Cardio: COMMON NORMALS: regular rate RATE: regular rate GI: COMMON NORMALS: Soft to palpation and non-tender PALPATION: Yes Soft to palpation Extremity: COMMON NORMALS: full ROM NARRATIVE EXTREMITY EXAM: +swelling over the L hand worse at the base of the 5th metacarpal with extension over the dorsal and volar surfaces with moderate tenderness to palpation, intact in the ulnar/median/radial distribution of the left hand, cap refill less than 3 seconds in the digits Neuro: SENSORIUM/ORIENTATION: Yes alert MOTOR EXAM: No Abnormal motor strength present and Other motor observations present (no focal motor deficits) Psych: COMMON NORMALS: speech normal SPEECH: Yes normal speech MOOD & AFFECT: Yes euthymic mood Course Vital Signs: Vital signs: Vital Signs Temperature 98.3 F 05/24/22 17:28 Pulse Rate 88 05/25/22 01:58 Respiratory Rate 14 05/25/22 02:19 Blood Pressure 121/79 05/25/22 01:58 Pulse Oximetry 90 05/25/22 01:58 Oxygen Delivery Me thod 05/25/22 01:58 MDM - General Adult Lab Data : 05/24/22 20:10 05/24/22 20:10 Radiology Impressions Hand X-Ray 05/24/22 17:19 IMPRESSION: 1. No acute bony findings. 2. Mild diffuse nonspecific soft tissue prominence. 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 There does appear to be evidence of tenosynovitis along the extensor tendon of the 5th metacarpal as well as a small amount of fluid in the carpal tunnel decompressing along the flexor tendon sheaths. No drainable fluid collection. Laboratory Results WBC 11.7 10^3/uL (4.0-10.0) H 05/24/22 20:10 RBC 5.14 10^6/uL (4.1-5.3) 05/24/22 20:10 Hgb 15.7 g/dL (11.7-16.6) 05/24/22 20:10 Hct 47.6 % (42.0-52.0) 05/24/22 20:10 MCV 92.6 fl (80-94) 05/24/22 20:10 MCH 30.5 pg (28.0-34.0) 05/24/22 20:10 MCHC 33.0 g/dL (30.0-36.0) 05/24/22 20:10 RDW 12.3 % (12.1-15.1) 05/24/22 20:10 Plt Count 232 10^3/cmm (130-400) 05/24/22 20:10 MPV 11.2 fL (7.4-10.4) H 05/24/22 20:10 Neut % (Auto) 63.6 % 05/24/22 20:10 Lymph % (Auto) 28.2 % 05/24/22 20:10 Sevier % (Auto) 6.1 % 05/24/22 20:10 Eos % (Auto) 1.3 % 05/24/22 20:10 Baso % (Auto) 0.5 % 05/24/22 20:10 Neut # (Auto) 7.46 10^3/uL (1.8-7.7) 05/24/22 20:10 Lymph # (Auto) 3.3 10^3/uL (0.8-4.8) 05/24/22 20:10 Sevier # (Auto) 0.7 10^3/uL (0.2-0.9) 05/24/22 20:10 Eos # (Auto) 0.2 10^3/uL (0.0-0.8) 05/24/22 20:10 Baso # (Auto) 0.1 10^3/uL (0.0-0.1) 05/24/22 20:10 Nucleated RBC % (auto) 0 % 05/24/22 20:10 Nucleated RBCs # 0.0 /100WBC 05/24/22 20:10 ESR 12 mm/hr (0-10) H 05/24/22 20:10 Sodium 137 mmol/L (136-145) 05/24/22 20:10 Potassium 4.1 mmol/L (3.5-5.1) 05/24/22 20:10 Chloride 102 mmol/L (98-107) 05/24/22 20:10 Carbon Dioxide 24 mmol/L (22-29) 05/24/22 20:10 Anion Gap 15.1 (5-19) 05/24/22 20:10 BUN 10 mg/dL (6-20) 05/24/22 20:10 Creatinine 0.9 mg/dL (0.7-1.2) 05/24/22 20:10 GFR Calculation 91.3 mL/min (90-130) 05/24/22 20:10 Glucose 96 mg/dL (65-115) 05/24/22 20:10 Calculated Osmolality 283 mOsm/kg (285-295) L 05/24/22 20:10 Calcium 9.1 mg/dL (8.5-10.5) 05/24/22 20:10 C-Reactive Protein 8.9 mg/L (0.0-4.9) H 05/24/22 20:10 Imaging Data Other Imaging: Radiologist's impression: [address] [address] XRay Report Signed Patient: Ambrosio Rivera Unit #: [id number] : 1975 Age/Sex: 47 / M ADM Date: 05/24/22 Loc: ER Room/Bed: Attending Dr: Ordering Provider/Ordering MD: Eulalio Cruz MD Date of Service: 05/24/22 Procedure(s): XR hand LT min 3V* [id number] Accession Number(s): [id number] Report Number: [id number] PROCEDURE INFORMATION: Exam: XR Left Hand Exam date and time: 05/24/2022 6:23 PM Age: 47 years old Clinical indication: Swelling; Hand; Left; Additional info: L hand swelling TECHNIQUE: Imaging protocol: Radiologic exam of the Left hand. Views: 3 or more views. COMPARISON: No relevant prior studies available. FINDINGS: Bones/joints: Normal. Soft tissues: Mild diffuse nonspecific soft tissue prominence. XR/XR hand LT min 3V* [id number] IMPRESSION: 1. No acute bony findings. 2. Mild diffuse nonspecific soft tissue prominence. ? Dictated By: Nabor Segura MD Signed By: Nabor Segura MD Signed Date/Time: 05/24/221922 DD/ 22 Discharge Plan Discharge Patient Disposition: Home Clinical Impression: Infected hand, Tenosynovitis of finger and hand Condition: Stable Prescriptions: New clindamycin HCl 150 mg capsule 150 mg PO Q6H 10 Days Qty: 40 0RF No Action albuterol sulfate 2.5 mg /3 mL (0.083 %) solution for nebulization 2.5 mg INHALATION QID PRN (Reason: Shortness Of Breath) albuterol sulfate [ProAir HFA] 90 mcg/actuation HFA aerosol inhaler 2 puff INHALATION Q6H PRN (Reason: Shortness Of Breath) omeprazole 20 mg capsule,delayed release(DR/EC) 20 mg PO QAM aspirin [Adult Aspirin Regimen] 81 mg tablet,delayed release (DR/EC) 81 mg PO QAM varenicline [Chantix] 1 mg Tablet 1 mg PO BID Rx Instructions: (as directed) atorvastatin 20 mg tablet 20 mg PO QAM cetirizine 10 mg tablet 10 mg PO QAM ropinirole 3 mg tablet 3 mg PO BEDTIME Rx Instructions: takes with 1mg to =4mg tamsulosin 0.4 mg capsule 0.4 mg PO QAM ropinirole 0.5 mg tablet See Rx Instructions .ROUTE .COMPLEX Rx Instructions: 0.5mg po qam and 1mg po at bedtime Flovent HFA 220 mcg/actuation Hfa Aerosol Inhaler 1 puff INHALATION BID PRN (Reason: asthma) EpiPen 0.3 mg/0.3 mL Auto-Injector 0.3 mg IM Q4H PRN (Reason: Allergic Reaction) fluticasone propionate 50 mcg/actuation spray,suspension 2 spray INTRANASAL DAILY PRN (Reason: Allergy Symptoms) isosorbide mononitrate 30 mg tablet extended release 24 hr 30 mg PO BID Discharge Orders: Discharge ED (Routine); Ordered 05/25/22 Ordered By: David Masters Referrals: Tamara Crespo MD [Primary Care Provider] - Discharge Diet: Usual diet Discharge Activity: Increase activity as tolerated Patient Instructions: Opioid Safety Activity Restrictions/Additional Instructions: Continue the antibiotics we have prescribed in the emergency department. Return to this emergency department in 24 hours for reevaluation. If you develop increasing symptoms at any time as we discussed to include fever, inability to move your fingers or hand or increasing pain return to this or the nearest emergency department immediately. Coding Level of Care Code ED [employer] Fwd Exam Comprehensive Documented by User: Jay Varma MD 05/25/22 06:12 HPI - General Adult General: Chief complaint: Skin/Abscess/Foreign Body Stated complaint: Left hand swollen Time Seen by Provider: 05/24/22 19:50 PFSH ED PFSH: Medical History Chest pain Generalized anxiety disorder HTN (hypertension), benign Major depressive disorder, recurrent, moderate Panic disorder [episodic paroxysmal anxiety] Post-traumatic stress disorder, chronic Shortness of breath Family History Other CAD (coronary artery disease) Cancer Dementia Diabetes Family history of premature coronary artery disease Hyperlipidemia Hypertension Lung disease Stroke Denies family history of Chronic kidney disease (CKD) Social History Smoking and tobacco status: current every day smoker cigarettes Packs smoked per day: 0.5 Years cigarettes smoked: 30 Quit status (tobacco): considering quitting Second hand smoke exposure: Yes Smoking risk assessment/counseling performed?: Yes Tobacco counseling given: counseling >3 minutes Alcohol intake: never Lives independently: Yes Household members: spouse Housing: House Marital status: Life Partner Current occupational status: unemployed Pets and animals: Yes History of recent travel: No ([facility]) Current gender identity: Male Course Vital Signs: Vital signs: Vital Signs Temperature 98.3 F 05/24/22 17:28 Pulse Rate 88 05/25/22 01:58 Respiratory Rate 14 05/25/22 02:19 Blood Pressure 121/79 05/25/22 01:58 Pulse Oximetry 90 05/25/22 01:58 Oxygen Delivery Me thod 05/25/22 01:58 MDM - General Adult Medical Decision Making 47-year-old nondiabetic left handed gentleman handed off to me from Dr. Cruz pending hopefully outside transfer. We contacted numerous outside facilities who either do not have and surgery available or do not have bed availability. Per report from Dr. Cruz our orthopedic surgeon on-call declined to see the patient and feel strongly that if we feel he needs inpatient management that he be transferred. This is an extremely challenging situation due to limitations. Ultimately patient is nontoxic in appearance, white blood cell count is mildly elevated and only mild elevation in inflammatory markers. I will proceed with CT scan and patient will likely have to be discharged for outpatient follow-up on oral antibiotics with strict return precautions if CT scan is not significantly concerning. Patient care handed off to Dr. Masters pending completion of CT scan and reassessment of patient condition. Jay Varma MD Emergency Medicine Lab Data : 05/24/22 20:10 05/24/22 20:10 Radiology Impressions Hand X-Ray 05/24/22 17:19 IMPRESSION: 1. No acute bony findings. 2. Mild diffuse nonspecific soft tissue prominence. 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 There does appear to be evidence of tenosynovitis along the extensor tendon of the 5th metacarpal as well as a small amount of fluid in the carpal tunnel decompressing along the flexor tendon sheaths. No drainable fluid collection. Laboratory Results WBC 11.7 10^3/uL (4.0-10.0) H 05/24/22 20:10 RBC 5.14 10^6/uL (4.1-5.3) 05/24/22 20:10 Hgb 15.7 g/dL (11.7-16.6) 05/24/22 20:10 Hct 47.6 % (42.0-52.0) 05/24/22 20:10 MCV 92.6 fl (80-94) 05/24/22 20:10 MCH 30.5 pg (28.0-34.0) 05/24/22 20:10 MCHC 33.0 g/dL (30.0-36.0) 05/24/22 20:10 RDW 12.3 % (12.1-15.1) 05/24/22 20:10 Plt Count 232 10^3/cmm (130-400) 05/24/22 20:10 MPV 11.2 fL (7.4-10.4) H 05/24/22 20:10 Neut % (Auto) 63.6 % 05/24/22 20:10 Lymph % (Auto) 28.2 % 05/24/22 20:10 Sevier % (Auto) 6.1 % 05/24/22 20:10 Eos % (Auto) 1.3 % 05/24/22 20:10 Baso % (Auto) 0.5 % 05/24/22 20:10 Neut # (Auto) 7.46 10^3/uL (1.8-7.7) 05/24/22 20:10 Lymph # (Auto) 3.3 10^3/uL (0.8-4.8) 05/24/22 20:10 Sevier # (Auto) 0.7 10^3/uL (0.2-0.9) 05/24/22 20:10 Eos # (Auto) 0.2 10^3/uL (0.0-0.8) 05/24/22 20:10 Baso # (Auto) 0.1 10^3/uL (0.0-0.1) 05/24/22 20:10 Nucleated RBC % (auto) 0 % 05/24/22 20:10 Nucleated RBCs # 0.0 /100WBC 05/24/22 20:10 ESR 12 mm/hr (0-10) H 05/24/22 20:10 Sodium 137 mmol/L (136-145) 05/24/22 20:10 Potassium 4.1 mmol/L (3.5-5.1) 05/24/22 20:10 Chloride 102 mmol/L (98-107) 05/24/22 20:10 Carbon Dioxide 24 mmol/L (22-29) 05/24/22 20:10 Anion Gap 15.1 (5-19) 05/24/22 20:10 BUN 10 mg/dL (6-20) 05/24/22 20:10 Creatinine 0.9 mg/dL (0.7-1.2) 05/24/22 20:10 GFR Calculation 91.3 mL/min (90-130) 05/24/22 20:10 Glucose 96 mg/dL (65-115) 05/24/22 20:10 Calculated Osmolality 283 mOsm/kg (285-295) L 05/24/22 20:10 Calcium 9.1 mg/dL (8.5-10.5) 05/24/22 20:10 C-Reactive Protein 8.9 mg/L (0.0-4.9) H 05/24/22 20:10 Discharge Plan Discharge Patient Disposition: Home Clinical Impression: Infected hand, Tenosynovitis of finger and hand Condition: Stable Prescriptions: New clindamycin HCl 150 mg capsule 150 mg PO Q6H 10 Days Qty: 40 0RF No Action albuterol sulfate 2.5 mg /3 mL (0.083 %) solution for nebulization 2.5 mg INHALATION QID PRN (Reason: Shortness Of Breath) albuterol sulfate [ProAir HFA] 90 mcg/actuation HFA aerosol inhaler 2 puff INHALATION Q6H PRN (Reason: Shortness Of Breath) omeprazole 20 mg capsule,delayed release(DR/EC) 20 mg PO QAM aspirin [Adult Aspirin Regimen] 81 mg tablet,delayed release (DR/EC) 81 mg PO QAM varenicline [Chantix] 1 mg Tablet 1 mg PO BID Rx Instructions: (as directed) atorvastatin 20 mg tablet 20 mg PO QAM cetirizine 10 mg tablet 10 mg PO QAM ropinirole 3 mg tablet 3 mg PO BEDTIME Rx Instructions: takes with 1mg to =4mg tamsulosin 0.4 mg capsule 0.4 mg PO QAM ropinirole 0.5 mg tablet See Rx Instructions .ROUTE .COMPLEX Rx Instructions: 0.5mg po qam and 1mg po at bedtime Flovent HFA 220 mcg/actuation Hfa Aerosol Inhaler 1 puff INHALATION BID PRN (Reason: asthma) EpiPen 0.3 mg/0.3 mL Auto-Injector 0.3 mg IM Q4H PRN (Reason: Allergic Reaction) fluticasone propionate 50 mcg/actuation spray,suspension 2 spray INTRANASAL DAILY PRN (Reason: Allergy Symptoms) isosorbide mononitrate 30 mg tablet extended release 24 hr 30 mg PO BID Discharge Orders: Discharge ED (Routine); Ordered 05/25/22 Ordered By: David Masters Referrals: Tamara Crespo MD [Primary Care Provider] - Discharge Diet: Usual diet Discharge Activity: Increase activity as tolerated Patient Instructions: Opioid Safety Activity Restrictions/Additional Instructions: Continue the antibiotics we have prescribed in the emergency department. Return to this emergency department in 24 hours for reevaluation. If you develop increasing symptoms at any time as we discussed to include fever, inability to move your fingers or hand or increasing pain return to this or the nearest emergency department immediately. Coding Level of Care Code ED [employer] Fwd Exam Comprehensive Documented by User: David Masters DO 05/25/22 10:04 HPI - General Adult General: Chief complaint: Skin/Abscess/Foreign Body Stated complaint: Left hand swollen Time Seen by Provider: 05/24/22 19:50 [facility] ED PFSH: Medical History Chest pain Generalized anxiety disorder HTN (hypertension), benign Major depressive disorder, recurrent, moderate Panic disorder [episodic paroxysmal anxiety] Post-traumatic stress disorder, chronic Shortness of breath Family History Other CAD (coronary artery disease) Cancer Dementia Diabetes Family history of premature coronary artery disease Hyperlipidemia Hypertension Lung disease Stroke Denies family history of Chronic kidney disease (CKD) Social History Smoking and tobacco status: current every day smoker cigarettes Packs smoked per day: 0.5 Years cigarettes smoked: 30 Quit status (tobacco): considering quitting Second hand smoke exposure: Yes Smoking risk assessment/counseling performed?: Yes Tobacco counseling given: counseling >3 minutes Alcohol intake: never Lives independently: Yes Household members: spouse Housing: House Marital status: Life Partner Current occupational status: unemployed Pets and animals: Yes History of recent travel: No ([facility]) Current gender identity: Male Course Reevaluation(s): Reevaluation #1: I assumed care of this patient from Dr. Keys at shift change. We were awaiting imaging interpretation. Patient presented to the emergency department because of pain swelling to his left hand particularly the lateral side of his left hand. He apparently had been punctured in several locations with rebel garcia thorns. He is left-handed. He denies any constitutional complaints such as fever etc. He does have pain with movement of fourth and fifth fingers. 's examination reveals her to be calm and alert. Attention to his left hand reveals swelling of the hand. There is a very faint erythema over the MCP of the fifth and some involvement of the fourth digit. He has significant marked tenderness over the same area. There is no ascending lymphangitis noted. He has normal range of motion at the wrist elbow and shoulder. The forearm is soft and not tense. CT scan imaging reviewed. Evidence of tenosynovitis. No abscess noted. No other significant findings please see full report. Time: 08:24 Reevaluation #2: Patient remains clinically stable. Again examination of the tension of his left hand reveals some localized tenderness over the MCP. There is no significant erythema at this time. He is able to fully extend all digits of the left hand. Able to flex and extend wrist elbow and shoulder. No abnormal Apley refill, diminished pulses, altered sensation in the left upper extremity. Discussed treatment options with the patient at this time. At this time he has no evidence of a drainable abscess. Has findings which again represent tenosynovitis. This is likely due to the puncture wound as noted. The patient has opted for outpatient treatment with 24 follow-up. We will continue him on oral antibiotics. He is received a single dose of dexamethasone in the emergency department to help in a local inflammation. We discussed immediate return precautions to include development of fever, increasing pain, inability to move fingers of the hand or other concerns at any time he should return to this or the nearest emergency department immediately. Knowledges our discussion, the limitations and benefits of the current treatment plan and is stable for discharge. He has apparent intact decision-making capacity and is able to verbalize understanding of recommendations. Time: 09:53 Consultations: Consultation #1: I spoke with Dr. Stoner this morning. We reviewed his history and his current findings. At this point he has no drainable abscess. She recommends a trial of antibiotics over the next 24 hours and then reevaluate. Time: 09:10 Vital Signs: Vital signs: Vital Signs Temperature 98.3 F 05/24/22 17:28 Pulse Rate 88 05/25/22 01:58 Respiratory Rate 14 05/25/22 02:19 Blood Pressure 121/79 05/25/22 01:58 Pulse Oximetry 90 05/25/22 01:58 Oxygen Delivery Me thod 05/25/22 01:58 [facility] - General Adult Medical Records I reviewed the patient's medical records. Lab Data I reviewed the patient's lab results. : 05/24/22 20:10 05/24/22 20:10 Radiology Impressions Hand X-Ray 05/24/22 17:19 IMPRESSION: 1. No acute bony findings. 2. Mild diffuse nonspecific soft tissue prominence. 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 There does appear to be evidence of tenosynovitis along the extensor tendon of the 5th metacarpal as well as a small amount of fluid in the carpal tunnel decompressing along the flexor tendon sheaths. No drainable fluid collection. Laboratory Results WBC 11.7 10^3/uL (4.0-10.0) H 05/24/22 20:10 RBC 5.14 10^6/uL (4.1-5.3) 05/24/22 20:10 Hgb 15.7 g/dL (11.7-16.6) 05/24/22 20:10 Hct 47.6 % (42.0-52.0) 05/24/22 20:10 MCV 92.6 fl (80-94) 05/24/22 20:10 MCH 30.5 pg (28.0-34.0) 05/24/22 20:10 MCHC 33.0 g/dL (30.0-36.0) 05/24/22 20:10 RDW 12.3 % (12.1-15.1) 05/24/22 20:10 Plt Count 232 10^3/cmm (130-400) 05/24/22 20:10 MPV 11.2 fL (7.4-10.4) H 05/24/22 20:10 Neut % (Auto) 63.6 % 05/24/22 20:10 Lymph % (Auto) 28.2 % 05/24/22 20:10 Sevier % (Auto) 6.1 % 05/24/22 20:10 Eos % (Auto) 1.3 % 05/24/22 20:10 Baso % (Auto) 0.5 % 05/24/22 20:10 Neut # (Auto) 7.46 10^3/uL (1.8-7.7) 05/24/22 20:10 Lymph # (Auto) 3.3 10^3/uL (0.8-4.8) 05/24/22 20:10 Sevier # (Auto) 0.7 10^3/uL (0.2-0.9) 05/24/22 20:10 Eos # (Auto) 0.2 10^3/uL (0.0-0.8) 05/24/22 20:10 Baso # (Auto) 0.1 10^3/uL (0.0-0.1) 05/24/22 20:10 Nucleated RBC % (auto) 0 % 05/24/22 20:10 Nucleated RBCs # 0.0 /100WBC 05/24/22 20:10 ESR 12 mm/hr (0-10) H 05/24/22 20:10 Sodium 137 mmol/L (136-145) 05/24/22 20:10 Potassium 4.1 mmol/L (3.5-5.1) 05/24/22 20:10 Chloride 102 mmol/L (98-107) 05/24/22 20:10 Carbon Dioxide 24 mmol/L (22-29) 05/24/22 20:10 Anion Gap 15.1 (5-19) 05/24/22 20:10 BUN 10 mg/dL (6-20) 05/24/22 20:10 Creatinine 0.9 mg/dL (0.7-1.2) 08/09/22 20:10 GFR Calculation 91.3 mL/min (90-130) 05/24/22 20:10 Glucose 96 mg/dL (65-115) 05/24/22 20:10 Calculated Osmolality 283 mOsm/kg (285-295) L 05/24/22 20:10 Calcium 9.1 mg/dL (8.5-10.5) 05/24/22 20:10 C-Reactive Protein 8.9 mg/L (0.0-4.9) H 05/24/22 20:10 Discharge Plan Discharge Patient Disposition: Home Clinical Impression: Infected hand, Tenosynovitis of finger and hand Condition: Stable Prescriptions: New clindamycin HCl 150 mg capsule 150 mg PO Q6H 10 Days Qty: 40 0RF No Action albuterol sulfate 2.5 mg /3 mL (0.083 %) solution for nebulization 2.5 mg INHALATION QID PRN (Reason: Shortness Of Breath) albuterol sulfate [ProAir HFA] 90 mcg/actuation HFA aerosol inhaler 2 puff INHALATION Q6H PRN (Reason: Shortness Of Breath) omeprazole 20 mg capsule,delayed release(DR/EC) 20 mg PO QAM aspirin [Adult Aspirin Regimen] 81 mg tablet,delayed release (DR/EC) 81 mg PO QAM varenicline [Chantix] 1 mg Tablet 1 mg PO BID Rx Instructions: (as directed) atorvastatin 20 mg tablet 20 mg PO QAM cetirizine 10 mg tablet 10 mg PO QAM ropinirole 3 mg tablet 3 mg PO BEDTIME Rx Instructions: takes with 1mg to =4mg tamsulosin 0.4 mg capsule 0.4 mg PO QAM ropinirole 0.5 mg tablet See Rx Instructions .ROUTE .COMPLEX Rx Instructions: 0.5mg po qam and 1mg po at bedtime Flovent HFA 220 mcg/actuation Hfa Aerosol Inhaler 1 puff INHALATION BID PRN (Reason: asthma) EpiPen 0.3 mg/0.3 mL Auto-Injector 0.3 mg IM Q4H PRN (Reason: Allergic Reaction) fluticasone propionate 50 mcg/actuation spray,suspension 2 spray INTRANASAL DAILY PRN (Reason: Allergy Symptoms) isosorbide mononitrate 30 mg tablet extended release 24 hr 30 mg PO BID Discharge Orders: Discharge ED (Routine); Ordered 05/25/22 Ordered By: David Masters Referrals: Tamara Crespo MD [Primary Care Provider] - Discharge Diet: Usual diet Discharge Activity: Increase activity as tolerated Patient Instructions: Opioid Safety Activity Restrictions/Additional Instructions: Continue the antibiotics we have prescribed in the emergency department. Return to this emergency department in 24 hours for reevaluation. If you develop increasing symptoms at any time as we discussed to include fever, inability to move your fingers or hand or increasing pain return to this or the nearest emergency department immediately. 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
[2022-05-24 20:15] LABS: Erythrocyte Sedimentation Rate 12 mm/hr (0-10)
[2022-05-24 20:17] LABS: Basophils # 0.1 10^3/uL (0.0-0.1); Basophils % 0.5 %; Eosinophils # 0.2 10^3/uL (0.0-0.8); Eosinophils % 1.3 %; Hematocrit 47.6 % (42.0-52.0); Hemoglobin 15.7 g/dL (11.7-16.6); Lymphocytes # 3.3 10^3/uL (0.8-4.8); Lymphocytes % 28.2 %; Mean Corpuscular Hemoglobin 30.5 pg (28.0-34.0); Mean Corpuscular Volume 92.6 fl (80-94); Mean Platelet Volume 11.2 fL (7.4-10.4); Monocytes # 0.7 10^3/uL (0.2-0.9); Monocytes % 6.1 %; Neutrophils # 7.46 10^3/uL (1.8-7.7); Neutrophils % 63.6 %; Nucleated Red Blood Cells % 0 %; Platelet Count 232 10^3/cmm (130-400); Red Blood Count 5.14 10^6/uL (4.1-5.3); Red Cell Distribution Width 12.3 % (12.1-15.1); White Blood Count 11.7 10^3/uL (4.0-10.0)
[2022-05-24] MEDS: cefepime 1,000 MG in sodium chloride 0.9% (plus) 50 ML 100 MG IV (20:31)
[2022-05-24 20:37] LABS: Anion Gap 15.1 (5-19); Blood Urea Nitrogen 10 mg/dL (6-20); C Reactive Protein 8.9 mg/L (0.0-4.9); Calcium 9.1 mg/dL (8.5-10.5); Carbon Dioxide 24 mmol/L (22-29); Chloride 102 mmol/L (98-107); Glomerular Filtration Rate 91.3 mL/min (90-130); Glucose 96 mg/dL (65-115); Osmolality Calculated 283 mOsm/kg (285-295); Potassium 4.1 mmol/L (3.5-5.1); Sodium 137 mmol/L (136-145)
[2022-05-24] MEDS: clindamycin 600 MG/50 ML PREMIX 100 MG IV (21:05)
[2022-05-24 21:08] VITALS: RESP 18
[2022-05-24] MEDS: morphine 4 mg/mL SDV 1 mL IVP (21:08)
[2022-05-24] MEDS: vancomycin 1,000 MG in sodium chloride 0.9% 250 ML 250 MG IV (21:26)
[2022-05-24] MEDS: metroNIDAZOLE IV 500 MG/100 ML PREMIX 100 MG IV (21:44)
[2022-05-24] MEDS: ropinirole 1 mg Tablet 4 MG PO (21:49)
[2022-05-25 01:58] VITALS: BP 121/79; PULSE 88; O2SAT 90
[2022-05-25 02:19] VITALS: RESP 14
[2022-05-25] MEDS: morphine 4 mg/mL SDV 1 mL IVP (02:19)
--- NOTE | 2022-05-25 03:50 | CTR_ITS ---
PROCEDURE INFORMATION: Exam: CT Left Upper Extremity With Contrast Exam date and time: 05/25/2022 4:25 AM Age: 47 years old Clinical indication: Pain; Arm, lower and hand; Left; Lower or forearm; Patient HX: Patient has swelling to dorsal surface of hand and distal forearm from multiple puncture wounds from the [facility] [employer] a [employer] three days ago. ; Additional info: Eval deep hand infection/evidence of tenosynovitis TECHNIQUE: Imaging protocol: Computed tomography of the Left upper extremity with contrast. Radiation optimization: All CT scans at this facility use at least one of these dose optimization techniques: automated exposure control; mA and/or kV adjustment per patient size (includes targeted exams where dose is matched to clinical indication); or iterative reconstruction. Contrast material: OMNI 350; Contrast volume: 80 ml; Contrast route: INTRAVENOUS (IV); COMPARISON: CR XR hand LT min 3V* [id number] 05/24/2022 6:23 PM RADIATION DOSE METRICS: Total DLP (mGy-cm): 433.61 FINDINGS: Bones/joints: Small pisotriquetral joint effusion. No acute fracture or malalignment. No specific evidence of osteomyelitis. Soft tissues: There is some subcutaneous edema over the dorsal aspect of the ulnar aspect of the hand as well as the wrist and distal forearm. There is some fluid adjacent to the 5th metacarpal in the extensor tendon sheath, likely reflecting extensor tenosynovitis. There is also a small amount of fluid in the carpal tunnel decompressing along the flexor tendons. No drainable fluid collections are seen. 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 There does appear to be evidence of tenosynovitis along the extensor tendon of the 5th metacarpal as well as a small amount of fluid in the carpal tunnel decompressing along the flexor tendon sheaths. No drainable fluid collection.
[2022-05-25] MEDS: iohexol 350 mg/mL 100 mL Btl IV (04:40)
[2022-05-25] MEDS: dexamethasone 10 mg/mL INJ IVP (09:25)
[2022-05-25] MEDS: ketorolac 30 mg/mL INJ 15 MG IVP (09:25)
== END 2022-05-25 10:25 | disposition home or self-care (01) ==
PROVIDERS: Emergency Medicine; Emergency Provider Emergency Medicine; PCP Family Medicine
DX: L08.9 Local infection of the skin and subcutaneous tissue, unspecified (principal); M65.9 Synovitis and tenosynovitis, unspecified; Z79.82 Long term (current) use of aspirin; I10 Essential (primary) hypertension; F17.210 Nicotine dependence, cigarettes, uncomplicated
CPT/HCPCS: 73130; 73206; 80048; 85025; 85651; 86140; 96365; 96367; 96375; 99285; J0692; J1100; J1885; J2270; J3370; J3490; J7050; Q9967; S0030

== ENCOUNTER 2022-05-26 11:32 | Emergency (ER) | payer MEDICAID, SELFPAY ==
[2022-05-26 11:52] VITALS: BP 133/90; PULSE 95; RESP 16; TEMP 37.1; O2SAT 97; BMI 35.2
--- NOTE | 2022-05-26 12:06 | ED_ITS ---
HPI - Recheck/Abnormal Lab/Rx General: Chief Complaint: Recheck/Abnormal Lab/Rx Stated Complaint: Asked to come back for his left hand swelling Time Seen by Provider: 05/26/22 11:53 History of Present Illness: Patient is a 47-year-old male comes to the ED to have his left hand rechecked. Patient was seen here in the ED 2 days ago on May 24 and he had an infected left hand. He was given IV antibiotics and discharged home on oral clindamycin. He started taking the clindamycin y . He says he is still having some pain in his left hand but his symptoms of swelling and movement have improved significantly. Swelling in left hand has decreased significantly. His range of motion in his fourth and fifth fingers has improved greatly over the last 24 hours. Denies any other symptoms. Review of Systems Const: Denies: fever(s), chills or fatigue Eyes: Denies: change in vision or eye discomfort ENMT: Denies: throat pain, odynophagia, nasal discharge or nasal congestion Card: Denies: chest pain, palpitations, edema, swelling of feet/ankles, dyspnea on exertion or orthopnea Resp: Denies: dyspnea, productive cough or non-productive cough GI: Denies: abdominal pain, nausea, vomiting, diarrhea, constipation or hematochezia : Denies: flank pain, difficulty urinating, dysuria or hematuria Musc: Reports: extremity pain (Left hand pain); Denies: neck pain, back pain or extremity swelling Skin/Breast: Denies: rash or new lesions Neuro: Denies: headache(s), numbness in extremities or weakness in extremities [facility] ED PFSH: Medical History Chest pain Generalized anxiety disorder HTN (hypertension), benign Major depressive disorder, recurrent, moderate Panic disorder [episodic paroxysmal anxiety] Post-traumatic stress disorder, chronic Shortness of breath Family History Other CAD (coronary artery disease) Cancer Dementia Diabetes Family history of premature coronary artery disease Hyperlipidemia Hypertension Lung disease Stroke Denies family history of Chronic kidney disease (CKD) Social History Smoking and tobacco status: current every day smoker cigarettes Packs smoked per day: 0.5 Years cigarettes smoked: 30 Quit status (tobacco): considering quitting Second hand smoke exposure: Yes Smoking risk assessment/counseling performed?: Yes Tobacco counseling given: counseling >3 minutes Alcohol intake: never Lives independently: Yes Household members: spouse Housing: House Marital status: Life Partner Current occupational status: unemployed Pets and animals: Yes History of recent travel: No ([facility]) Current gender identity: Male Physical Exam Const: COMMON NORMALS: no acute distress, patient oriented x3, healthy appearing and alert GENERAL APPEARANCE: cooperative and comfortable HENMT: COMMON NORMALS: normocephalic HEAD & SCALP: normocephalic MOUTH: Normal oral and palatal mucosa present THROAT: posterior oropharynx normal and uvula midline Neck/C-Spine: COMMON NORMALS: supple GENERAL: Yes normal visual inspection Resp: COMMON NORMALS: normal respiratory effort, No retractions, No use of accessory muscles and clear to auscultation bilaterally AUSCULTATION: clear to auscultation bilaterally Cardio: COMMON NORMALS: regular rate, regular rhythm, S1 normal heart sound present, S2 normal heart sound present, No gallops present (Cardio), No clicks present (Cardio), No murmurs present (Cardio) and Peripheral pulses 2+ throughout RATE: regular rate RHYTHM: regular rhythm HEART SOUNDS: S1 normal heart sound present and S2 normal heart sound present PERIPHERAL PULSES: Peripheral pulses 2+ throughout GI: COMMON NORMALS: Normal to inspection, nondistended, normoactive bowel jena nds present, Soft to palpation, non-tender and no masses PALPATION: Yes Soft to palpation : COMMON NORMALS: Yes no CVA tenderness BLADDER/KIDNEY EXAM: Yes no CVA tenderness Back/Pelvis: COMMON NORMALS: no CVA tenderness Extremity: NARRATIVE EXTREMITY EXAM: Left hand?full range of motion in fingers which she states is a big improvement from 2 days ago. Minimal swelling to the hand noted. No erythema or warmth. Neuro: COMMON NORMALS: patient oriented x3 SENSORIUM/ORIENTATION: Yes alert GAIT: Yes Normal gait present Skin: GENERAL SKIN EXAM: dry skin Course Vital Signs: Vital signs: Vital Signs Temperature 98.8 F 05/26/22 11:52 Pulse Rate 92 05/26/22 12:33 Respiratory Rate 16 05/26/22 12:33 Blood Pressure 128/87 05/26/22 12:33 Pulse Oximetry 99 05/26/22 12:33 MDM - Recheck/Abnormal Lab/Rx Medical Decision Making Patient is a 47-year-old male comes to the ED for recheck on left hand infection. Patient was seen here in the ED 2 days ago on May 24 and diagnosed with hand infection. Patient has been taking the antibiotics since discharge from ED. He states that his symptoms have improved. He now has full range of motion in all his fingers of his hand which is a big improvement from 2 days ago. He has very minimal swelling to his left hand currently. No erythema or warmth noted. Vitals are stable. Patient's left hand infection appears to be healing well with current antibiotics. He was told to finish out the course of prescribed antibiotics and follow-up with his PCP within the next week. Return to ED precautions given. Patient understood and agreed with plan. Discharge Plan Discharge Patient Disposition: Home Clinical Impression: Infected hand Condition: Stable Prescriptions: No Action albuterol sulfate 2.5 mg /3 mL (0.083 %) solution for nebulization 2.5 mg INHALATION QID PRN (Reason: Shortness Of Breath) albuterol sulfate [ProAir HFA] 90 mcg/actuation HFA aerosol inhaler 2 puff INHALATION Q6H PRN (Reason: Shortness Of Breath) omeprazole 20 mg capsule,delayed release(DR/EC) 20 mg PO QAM aspirin [Adult Aspirin Regimen] 81 mg tablet,delayed release (DR/EC) 81 mg PO QAM varenicline [Chantix] 1 mg Tablet 1 mg PO BID Rx Instructions: (as directed) atorvastatin 20 mg tablet 20 mg PO QAM cetirizine 10 mg tablet 10 mg PO QAM ropinirole 3 mg tablet 3 mg PO BEDTIME Rx Instructions: takes with 1mg to =4mg tamsulosin 0.4 mg capsule 0.4 mg PO QAM ropinirole 0.5 mg tablet See Rx Instructions .ROUTE .COMPLEX Rx Instructions: 0.5mg po qam and 1mg po at bedtime Flovent HFA 220 mcg/actuation Hfa Aerosol Inhaler 1 puff INHALATION BID PRN (Reason: asthma) EpiPen 0.3 mg/0.3 mL Auto-Injector 0.3 mg IM Q4H PRN (Reason: Allergic Reaction) fluticasone propionate 50 mcg/actuation spray,suspension 2 spray INTRANASAL DAILY PRN (Reason: Allergy Symptoms) isosorbide mononitrate 30 mg tablet extended release 24 hr 30 mg PO BID clindamycin HCl 150 mg capsule 150 mg PO Q6H 10 Days Qty: 40 0RF Discharge Orders: Discharge ED (Routine); Ordered 05/26/22 Ordered By: Donald Orellana Referrals: Tamara Crespo MD [Primary Care Provider] - Discharge Diet: Regular Discharge Activity: Increase activity as tolerated Patient Instructions: Opioid Safety Activity Restrictions/Additional Instructions: Your left hand appears to be healing well and improving. Continue taking all antibiotic as previously prescribed. Follow-up with medical provider as directed. Take medications as prescribed. Return to the ER or your medical provider if condition worsens. Please read and understand discharge instructions. Thank you for choosing [facility] for your healthcare needs today. Andria gonzalez realize this is an emergency room and that we are providing you with a medical screening exam and this may not be complete and all inclusive of all the testing and or work up that you may need to determine your ailment or severity of your illness. It is very important that you follow up as instructed or that you return to the Emergency Department should you have concerns or if your condition changes or worsens in any way. Coding Level of Care Code ED Patient Observation Assistant for Dylan Fwkathy Exam Comprehensive
[2022-05-26 12:33] VITALS: BP 128/87; PULSE 92; RESP 16; O2SAT 99
== END 2022-05-26 12:37 | disposition home or self-care (01) ==
PROVIDERS: Emergency Provider Physician Assistant; PCP Family Medicine
DX: L08.9 Local infection of the skin and subcutaneous tissue, unspecified (principal); Z79.82 Long term (current) use of aspirin; I10 Essential (primary) hypertension; F17.210 Nicotine dependence, cigarettes, uncomplicated
CPT/HCPCS: 99281

== ENCOUNTER 2022-05-26 20:00 | Outpatient (CLI) | payer MEDICAID, SELFPAY | END 2022-05-26 20:01 | disposition home or self-care (01) | LOC: SLEEP 05-27 06:34 | PROVIDERS: PCP Family Medicine; Visit Provider Family Medicine | DX: G47.33 Obstructive sleep apnea (adult) (pediatric) (principal) | CPT/HCPCS: 95811 ==

== ENCOUNTER 2022-07-06 06:00 | Outpatient (RCR) | payer MEDICAID, SELFPAY | END 2022-07-15 23:59 | disposition home or self-care (01) | LOC: TPT 06:00 | PROVIDERS: PCP Family Medicine; Visit Provider Family Medicine | DX: M54.50 Low back pain, unspecified (principal); G89.29 Other chronic pain | CPT/HCPCS: 97162 ==

== ENCOUNTER 2022-07-16 06:00 | Outpatient (RCR) | payer MEDICAID, SELFPAY | END 2022-08-15 23:59 | disposition home or self-care (01) | LOC: TPT 06:00 | PROVIDERS: PCP Family Medicine; Visit Provider Family Medicine | DX: M54.50 Low back pain, unspecified (principal) | CPT/HCPCS: 97110 ==

== ENCOUNTER 2022-08-16 06:00 | Outpatient (RCR) | payer MEDICAID, SELFPAY | END 2022-09-14 23:59 | disposition home or self-care (01) | LOC: TPT 06:00 | PROVIDERS: PCP Family Medicine; Visit Provider Family Medicine | DX: M54.50 Low back pain, unspecified (principal) | CPT/HCPCS: 97110 ==

== ENCOUNTER 2022-09-15 06:00 | Outpatient (RCR) | payer MEDICAID, SELFPAY | END 2022-10-15 23:59 | disposition home or self-care (01) | LOC: TPT 06:00 | PROVIDERS: PCP Family Medicine; Visit Provider Family Medicine | DX: M54.50 Low back pain, unspecified (principal) | CPT/HCPCS: 97110 ==

== ENCOUNTER 2022-11-07 16:01 | Outpatient (CLI) | payer MEDICAID, SELFPAY ==
--- NOTE | 2022-11-07 16:20 | XR_ITS ---
WS: [id number] Exam: XR chest 2V* [id number] Date/Time of Exam: 11/07/2022 4:20 PM Reason For Exam: COUGH, POST ACUTE COVID Comparison 03/28/2020. The lungs are clear and fully expanded. Normal cardiomediastinal silhouette. Regional bony elements a ppear normal. No pleural effusions. Minimal degenerative changes of the thoracic spine. XR/XR chest 2V* [id number] IMPRESSION: 1. No acute cardiopulmonary finding.
== END 2022-11-07 16:02 | disposition home or self-care (01) ==
LOC: RAD 16:08
PROVIDERS: PCP Family Medicine; Visit Provider Family Medicine
DX: R05.9 Cough, unspecified (principal)
CPT/HCPCS: 71046

== ENCOUNTER 2023-02-13 15:08 | Outpatient (CLI) | payer MEDICAID, SELFPAY ==
--- NOTE | 2023-02-13 15:26 | XR_ITS ---
WS: [id number] XR lumbar spine f/e only [id number] REASON FOR EXAM: SPONDYLOLISTHESIS, LUMBAR REGION FINDINGS: Relatively normal lumbar lordosis. No significant vertebral body abnormality. Mild narrowing of the L3-L4 and L4-L5 disc spaces with small anterior osteophytes. There is no significant listhesis in the neutral position. With flexion there is approximately 3 to 3.5 mm of anterolisthesis of L3 in relation to L2 and L4 in relation to L3. No significant listhesis with extension. XR/XR lumbar spine f/e only [id number] IMPRESSION: Mild spondylolisthesis with flexion as above.
== END 2023-02-13 15:09 | disposition home or self-care (01) ==
LOC: RAD 15:13
PROVIDERS: PCP Nurse Practitioner Family; Visit Provider Nurse Practitioner
DX: M43.16 Spondylolisthesis, lumbar region (principal); M25.78 Osteophyte, vertebrae
CPT/HCPCS: 72120

== ENCOUNTER → 2023-03-07 12:23 | Outpatient (BNVA) | payer MEDICAID, SELFPAY | PROVIDERS: PCP Nurse Practitioner Family; Visit Provider Internal Medicine | DX: R07.9 Chest pain, unspecified (principal) | CPT/HCPCS: 93005 ==

== ENCOUNTER 2023-04-04 07:26 | Outpatient (CLI) | payer MEDICAID, SELFPAY ==
[2023-04-04 07:42] VITALS: BMI 33.0
--- NOTE | 2023-04-04 07:44 | ECG_ITS ---
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 Interpretive Statements NAME OF STUDY: LEXISCAN SESTAMIBI STRESS TEST INDICATION: [Chest Pain, ] Procedure: At the baseline, the blood pressure was 113/77 mmHg with a heart rate of 68 bpm. The electrocardiogram showed normal sinus rhythm, normal axis with normal ST and T's. The Lexiscan was infused over a period of 20 seconds. A total of 0.4 mg of Lexiscan was infused. The stress phase was continued for a total of 5 minutes. Heart rate was at the end of stress phase was 76 bpm and a blood pressure of 115/77 mmHg. The EKG at the peak infusion revealed normal sinus rhythm with no significant ST-T wave changes. Sestamibi was injected 20 seconds after the Lexiscan infusion. Blood pressure at the end of recovery phase was 123/74 mmHg with a heart rate of 74 bpm. Conclusion: 1. Normal EKG response to Lexiscan infusion 2. No Lexiscan induced chest pain or cardiac arrhythmia. 3. Normal blood pressure and heart rate response. 4. Sestamibi/sestamibi perfusion scan pending; see separate report. Electronically Signed On 04-07-2023 16:17:56 CDT by Johnie Ridley M.D. [email or web address]
--- NOTE | 2023-04-04 07:44 | NMCV_ITS ---
NM tiarra perf SPECT r/s* [id number] Miguel Ambrosio Age: 48 Gender: M : 1975 Exam Date: 04/04/2023 08:38 Ordering Phys: Johnie Ridley M.D ([email or web address]) Technologist: RAQUEL Pacheco Exam Location: [facility] Indications: Chest pain STRESS TEST [facility] IMAGE PROTOCOL Rest/Stress 1 Lexiscan Day Radiopharmaceutical Dose (mCi) Administration Site Administered by Rest: Tc-99m 10.9 IV RAQUEL Pacheco Sestamibi Stress:Tc-99m 32.8 IV RAQUEL Pacheco Sestamibi Rest: 04-Apr-2023 60 Discovery 630 Stress: 04-Apr-2023 30 Discovery 630 0.4mg Lexiscan. Images obtained in supine and prone position. SPECT RESULTS Technical Quality: Excellent Raw Data Analysis: Normal Image Corrections: No attenuation or motion correction applied Summed Stress Score: 0 Summed Rest Score: 0 Summed Difference Score: 0 PERFUSION FINDINGS SPECT images demonstrate homogeneous tracer distribution throughout the myocardium. FUNCTIONAL RESULTS (calculated via Gated SPECT) Stress Image LV EF (%): 63 Stress EDV (mL):122 TID: 1.21 Stress ESV (mL):45 FUNCTIONAL FINDINGS: There is normal left ventricular systolic function. TID ratio is elevated. IMPRESSIONS 1. Normal myocardial perfusion imaging with no evidence of ischemia 2. LV systolic function is normal 3. TID ratio is elevated however in absence of significant perfusion abnormality, significance of this finding is equivocal. Johnie Ridley MD (Electronically Signed) Final Date: 04 April 2023 11:34 S
--- NOTE | 2023-04-04 08:15 | USCV_ITS ---
Ambrosio Rivera Age: 48 Gender: M : 1975 Exam Date: 04/04/2023 07:48 Ordering Phys: Johine Ridley M.D ([email or web address]) Technologist: CT Exam Location: [facility] Indication: murmur BP: 129 / 80 HR: 71 Rhythm: Sinus Technical Quality: Adequate MEASUREMENTS (Male / Female) Normal Values 2D ECHO LV Diastolic Diameter PLAX 5.2 cm 4.2 - 5.9 / 3.9 - 5.3 cm LV Systolic Diameter PLAX 2.8 cm LV Chamber Size 4.6 cm IVS Diastolic Thickness 0.8 cm 0.6 - 1.0 / 0.6 - 0.9 cm IVS Systolic Thickness 1.1 cm LVPW Diastolic Thickness 1.0 cm 0.6 - 1.0 / 0.6 - 0.9 cm LVPW Systolic Thickness 1.6 cm RV Chamber Size 3.8 cm LVOT Diameter 2.1 cm LV Ejection Fraction 2D Teich 75.2 % LV Ejection Fraction MOD 2C 69.7 % LV Ejection Fraction 2C AL 70.3 % LA Diameter 3.6 cm LA Width 3.4 cm LA Height 4.4 cm RA Width 3.4 cm RA Height 4.2 cm Aorta at Sinotubular Diameter 2.7 cm IVC Diameter 1.1 cm M-MODE Aortic Annulus Diameter 3.9 cm LA Ao Ratio MM 1.0 MV E Point Septal Separation 0.8 cm DOPPLER AV Peak Velocity 127.0 cm/s LVOT Peak Velocity 91.0 cm/s AV Area Cont Eq vti 3.0 cm squared AV Area Cont Eq pk 2.5 cm squared MV Area PHT 3.3 cm squared Mitral E to A Ratio 0.9 MV E' Velocity 31.0 cm/s Mitral E to MV E' Ratio 4.5 Mitral E to LV E' Lateral Ratio 4.2 Mitral E to LV E' Septal Ratio 5.0 TR Peak Velocity 80.0 cm/s TR Peak Gradient 2.6 mmHg TV Peak E Velocity 79.0 cm/s Right Atrial Pressure 3.0 mmHg Pulmonary Artery Systolic Pressu 5.6 mmHg PV Peak Velocity 93.0 cm/s RV Acceleration Time 0.1 s FINDINGS Left Ventricle Left ventricle is normal in size. LV systolic function is normal with EF of 55-60%. No regional wall motion abnormalities are seen. Right Ventricle Normal in size and function Right Atrium Normal in size Left Atrium Normal in size Mitral Valve Structurally normal mitral valve. Mild mitral regurgitation. Aortic Valve Structurally normal aortic valve. No significant stenosis or regurgitation. Tricuspid Valve Mild tricuspid regurgitation. Insufficient TR jet to calculate RVSP Pulmonic Valve Not well-visualized Pericardium Normal Aorta Normal in size IVC Appears to be normal CONCLUSIONS LV systolic function is normal with EF 55 to 60%. Mild mitral regurgitation Mild tricuspid regurgitation Compared to prior echocardiogram from 2019, no significant changes are seen Johnie Ridley MD (Electronically Signed) Final Date: 08 April 2023 15:47 S
[2023-04-04] MEDS: regadenoson 0.4 Mg/5 ml Syringe IVP (09:11)
[2023-04-04 09:31] VITALS: BP 123/74; PULSE 75
== END 2023-04-04 07:27 | disposition home or self-care (01) ==
LOC: CDL 07:27
PROVIDERS: PCP Nurse Practitioner Family; Visit Provider Internal Medicine
DX: R07.9 Chest pain, unspecified (principal); R01.1 Cardiac murmur, unspecified; R06.02 Shortness of breath; I34.0 Nonrheumatic mitral (valve) insufficiency; I07.1 Rheumatic tricuspid insufficiency
CPT/HCPCS: 36415; 78452; 93017; 93306; 96374; A9500; J2785

== ENCOUNTER 2023-06-20 17:15 | Emergency (ER) | payer MEDICAID, SELFPAY ==
--- NOTE | 2023-06-20 17:15 | XRR_ITS ---
PROCEDURE INFORMATION: Exam: XR Chest Exam date and time: 06/20/2023 5:27 PM Age: 48 years old Clinical indication: Cough TECHNIQUE: Imaging protocol: Radiologic exam of the chest. Views: 1 view. COMPARISON: CR XR chest 2V* [id number] 11/07/2022 4:20 PM FINDINGS: Lungs: No consolidative pulmonary infiltrate noted. Pleural spaces: No pleural effusion. No pneumothorax. Heart/Mediastinum: No cardiomegaly. Bones/joints: Degenerative thoracic spine changes are noted. XR/XR chest 1V portable [id number] IMPRESSION: No acute abnormality demonstrated.
[2023-06-20 17:31] VITALS: BP 131/94; PULSE 81; RESP 16; TEMP 36.7; O2SAT 97; BMI 33.9
--- NOTE | 2023-06-20 19:08 | ED_ITS ---
HPI - COVID General: Chief Complaint: COVID symptoms Stated Complaint: covid symptoms Time Seen by Provider: 06/20/23 18:50 Source: patient Mode of arrival: ambulatory Limitations: no limitations History of Present Illness: 48-year-old male states over the last 2 days he has had a slightly productive cough with some nasal congestion he denies any shortness of breath he denies any fevers. He denies any worsening improving factors does have a history of COPD but denies any wheezing. He is a half a pack smoker COVID 19 common symptoms: positive productive cough and nasal congestion; negative fever(s), chills, dyspnea, body aches, headache(s), throat pain, nausea, vomiting or diarrhea COVID 19 other sytmptoms: negative chest pain COVID Results: SARS-CoV-2 Antigen (Rapid) negative (Negative) 06/20/23 19:45 SARS-CoV-2 RNA (RT-PCR) Not detected (NOT DETECTED) 12/02/21 1 8:02 Nasal/Oral Coronavirus 2019 PCR Negative 06/12/20 09:54 Review of Systems Const: Denies: fever(s), chills, body aches or change in appetite Eyes: Denies: eye discomfort ENMT: Reports: nasal congestion; Denies: throat pain or dental pain Card: Denies: chest pain Resp: Reports: productive cough; Denies: dyspnea GI: Denies: abdominal pain, nausea, vomiting or diarrhea : Denies: dysuria Musc: Denies: neck pain or back pain Skin/Breast: Denies: rash Neuro: Denies: headache(s) PFSH ED PFSH: Medical History Chest pain Generalized anxiety disorder HTN (hypertension), benign Major depressive disorder, recurrent, moderate Panic disorder [episodic paroxysmal anxiety] Post-traumatic stress disorder, chronic Shortness of breath Family History Other CAD (coronary artery disease) Cancer Dementia Diabetes Family history of premature coronary artery disease Hyperlipidemia Hypertension Lung disease Stroke Denies family history of Chronic kidney disease (CKD) Social History Smoking and tobacco status: current every day smoker cigarettes Packs smoked per day: 0.5 Years cigarettes smoked: 30 Quit status (tobacco): considering quitting Second hand smoke exposure: Yes Smoking risk assessment/counseling performed?: Yes Tobacco counseling given: counseling >3 minutes Alcohol intake: never Substance/Drug Use: never Lives independently: Yes Household members: spouse Housing: House Marital status: Life Partner Current occupational status: unemployed Pets and animals: Yes Do you think of yourself as: Straight/Heterosexual Current gender identity: Male Physical Exam Const: COMMON NORMALS: no acute distress, patient oriented x3 and healthy appearing HENMT: COMMON NORMALS: normocephalic and atraumatic HEAD & SCALP: normocephalic and atraumatic Neck/C-Spine: COMMON NORMALS: full ROM and supple Chest: COMMONS NORMALS: normal inspection of the chest and normal palpation of entire chest wall Resp: COMMON NORMALS: normal respiratory effort, No retractions, No use of accessory muscles and clear to auscultation bilaterally AUSCULTATION: clear to auscultation bilaterally Cardio: COMMON NORMALS: regular rate, regular rhythm and No murmurs present (Cardio) RATE: regular rate RHYTHM: regular rhythm GI: COMMON NORMALS: Normal to inspection, nondistended, normoactive bowel sounds present, Soft to palpation, non-tender and no masses PALPATION: Yes Soft to palpation Extremity: COMMON NORMALS: normal to inspection and full ROM Neuro: COMMON NORMALS: patient oriented x3, moves all extremities and no focal motor deficits Psych: COMMON NORMALS: mental status grossly normal, Normal thought process present and cooperative THOUGHT PROCESS: Normal thought process present Skin: COMMON NORMALS: no rashes or lesions noted and no wounds GENERAL SKIN EXAM: no rashes or lesions noted Course Vital Signs: Vital signs: Vital Signs Temperature 98.1 F 06/20/23 17:31 Pulse Rate 80 06/20/23 20:06 Respiratory Rate 16 06/20/23 17:31 Blood Pressure 138/91 06/20/23 20:06 Pulse Oximetry 96 06/20/23 20:17 Oxygen Delivery Me thod Room Air 06/20/23 20:17 MDM - COVID Medical Decision Making Patient presents here with cough congestion likely viral upper respiratory infection COVID here is negative x-ray shows no pneumonia he is in no distress here did give him a Decadron shot he is stable for discharge she is follow-up with PCP and return if worsening. Lab Data Radiology Impressions Chest X-Ray 06/20/23 17:15 IMPRESSION: No acute abnormality demonstrated. Laboratory Results SARS-CoV-2 Ag (Rapid) negative (Negative) 06/20/23 19:45 SARS-CoV-2 Antigen (Rapid) negative (Negative) 06/20/23 19:45 SARS-CoV-2 RNA (RT-PCR) Not detected (NOT DETECTED) 12/02/21 1 8:02 Nasal/Oral Coronavirus 2019 PCR Negative 06/12/20 09:54 Discharge Plan Discharge Patient Disposition: Home Clinical Impression: Upper respiratory infection Condition: Stable Prescriptions: No Action albuterol sulfate 2.5 mg /3 mL (0.083 %) solution for nebulization 2.5 mg INHALATION QID PRN (Reason: Shortness Of Breath) albuterol sulfate [ProAir HFA] 90 mcg/actuation HFA aerosol inhaler 2 puff INHALATION Q6H PRN (Reason: Shortness Of Breath) omeprazole 20 mg capsule,delayed release(DR/EC) 20 mg PO QAM aspirin [Adult Aspirin Regimen] 81 mg tablet,delayed release (DR/EC) 81 mg PO QAM isosorbide mononitrate 30 mg tablet extended release 24 hr 30 mg PO BID Qty: 180 3RF nitroglycerin 0.4 mg tablet, sublingual 0.4 mg sublingual Q5M PRN (Reason: chest pain) Qty: 25 2RF Rx Instructions: do not exceed 3 doses per episode ondansetron HCl 8 mg tablet 8 mg PO TID PRN gabapentin 300 mg capsule 300 mg PO DAILY fluoxetine 20 mg capsule 20 mg PO DAILY ropinirole 4 mg tablet 4 mg PO DAILY varenicline [Chantix] 1 mg Tablet 1 mg PO BID Rx Instructions: (as directed) atorvastatin 20 mg tablet 20 mg PO QAM cetirizine 10 mg tablet 10 mg PO QAM tamsulosin 0.4 mg capsule 0.4 mg PO QAM ropinirole 0.5 mg tablet See Rx Instructions .ROUTE .COMPLEX Rx Instructions: 0.5mg po qam and 1mg po at bedtime Flovent HFA 220 mcg/actuation Hfa Aerosol Inhaler 1 puff INHALATION BID PRN (Reason: asthma) EpiPen 0.3 mg/0.3 mL Auto-Injector 0.3 mg IM Q4H PRN (Reason: Allergic Reaction) fluticasone propionate 50 mcg/actuation spray,suspension 2 spray INTRANASAL DAILY PRN (Reason: Allergy Symptoms) Discharge Orders: Discharge ED (Routine); Ordered 06/20/23 Ordered By: Seb Ty Referrals: Janelle Manzo FNP [Primary Care Provider] - 1-3 days Discharge Diet: Advance as tolerated Discharge Activity: Resume usual activity Patient Instructions: Upper Respiratory Infection (ED) Coding Level of Care Code ED Residential Support Worker for Dylan Lowe
[2023-06-20] MEDS: dexamethasone 10 mg/mL INJ IM (19:46)
[2023-06-20 20:06] VITALS: BP 138/91; PULSE 80; O2SAT 96
[2023-06-20 20:11] LABS: SARS Covid-2 Antigen negative (Negative)
[2023-06-20 20:17] VITALS: O2SAT 96
[2023-06-20 20:27] VITALS: BP 139/89; PULSE 77; RESP 16; O2SAT 98
== END 2023-06-20 20:25 | disposition home or self-care (01) ==
PROVIDERS: Emergency Provider Emergency Medicine; PCP Nurse Practitioner Family
DX: J06.9 Acute upper respiratory infection, unspecified (principal); Z79.82 Long term (current) use of aspirin; Z20.822 Contact with and (suspected) exposure to COVID-19; F17.210 Nicotine dependence, cigarettes, uncomplicated; I10 Essential (primary) hypertension
CPT/HCPCS: 71045; 87426; 96372; 99284; J1100

== ENCOUNTER → 2023-07-12 15:30 | Outpatient (BNVA) | payer MEDICAID, SELFPAY | PROVIDERS: PCP Nurse Practitioner Family; Visit Provider Family Medicine | DX: I10 Essential (primary) hypertension (principal); J43.8 Other emphysema; F43.12 Post-traumatic stress disorder, chronic; G25.81 Restless legs syndrome; E78.5 Hyperlipidemia, unspecified | CPT/HCPCS: 80053; 80061; 84443; 85025 ==

== ENCOUNTER 2023-12-06 14:55 | Outpatient (CLI) | payer MEDICAID, SELFPAY ==
--- NOTE | 2023-12-06 15:02 | MR_ITS ---
WS: [id number] MRI LUMBAR SPINE NONCONTRAST HISTORY: VERTEBROGENIC LOW BACK PAIN COMPARISON: None available. TECHNIQUE: Sagittal and axial multisequence imaging is submitted. 5 nonrib-bearing lumbar vertebral bodies. The S1 vertebral body is partially lumbarized. Very slight retrolisthesis of L5. There is a small amount of marrow edema greatest on the LEFT in the L4 and L5 pedicles and facets. There is a small amount of soft tissue edema surrounding the facet meliza ints greatest on the LEFT. Disc spaces and vertebral body heights are well-preserved. Conus terminates normally at L1-2 disc level. L1-L2: No central stenosis. Mild facet arthritis and mild foraminal narrowing. L2-L3: Mild bilateral facet arthritis. Shallow RIGHT foraminal disc protrusion. There is mild RIGHT f oraminal stenosis. L3-L4: Diffuse disc bulging with ligamentum flavum and facet arthritis. There is encroachment upon th e subarticular recesses and the foramina due to disc and osteophyte. Mild central with moderate bilat eral subarticular recess and foraminal stenosis. There is disc and osteophyte contacting the L3 and L 4 nerve roots. L4-L5: Mild annular disc bulging with ligamentum flavum and facet arthritis. Mild disc encroachment u teresita the subarticular recesses. Severe LEFT and mild RIGHT foraminal stenosis. Complete effacement of fat in the LEFT foramen with significant contact on the LEFT exiting L4 nerve root. L5-S1: Mild disc bulging. Moderate facet arthritis. Mild bilateral foraminal stenosis. IMPRESSION: 1. Marrow edema in the L4 and L5 posterior elements but greatest on the LEFT with facet joint synovi tis. 2. L4-5: Severe LEFT and mild RIGHT foraminal stenosis. Complete effacement of fat in the LEFT natasha en with contact on the LEFT exiting L4 nerve root. Mild disc encroachment upon the subarticular reces ses. 3. L5-S1: Moderate facet arthritis with mild bilateral foraminal stenosis. 4. L3-4: Mild central with moderate bilateral subarticular recess and foraminal stenosis. Disc and o steophyte and facet encroachment upon the L3 and L4 nerve roots. 5. L1-2: Mild facet and mild foraminal stenosis. 6. L2-3: Mild RIGHT foraminal stenosis.
== END 2023-12-06 14:56 | disposition home or self-care (01) ==
LOC: RAD 14:55
PROVIDERS: PCP Nurse Practitioner Family; Visit Provider Anesthesiology Pain Medicine
DX: M54.51 Vertebrogenic low back pain (principal)
CPT/HCPCS: 72148

== ENCOUNTER → 2024-01-10 11:57 | Outpatient (BNVA) | payer MEDICAID, SELFPAY | PROVIDERS: PCP Family Medicine; Visit Provider Family Medicine | DX: Z12.5 Encounter for screening for malignant neoplasm of prostate (principal); R30.0 Dysuria; E78.5 Hyperlipidemia, unspecified | CPT/HCPCS: 80053; 80061; 81000; 84443; 85025; G0103 ==

== ENCOUNTER 2024-10-18 20:12 | Emergency (ER) | payer MEDICAID, SELFPAY ==
[2024-10-18 20:32] VITALS: BP 134/91; PULSE 94; RESP 18; TEMP 36.8; O2SAT 98; BMI 35.9
[2024-10-18 21:26] LABS: Covid PCR NEGATIVE (Negative); Influenza A NEGATIVE (Negative); Influenza B NEGATIVE (Negative); Respiratory Syncytial Virus Ce NEGATIVE (Negative)
--- NOTE | 2024-10-18 22:34 | ED_ITS ---
HPI - URI/Sore Throat General: Chief Complaint: Upper Respiratory Infection Stated Complaint: cough Time Seen by Provider: 10/18/24 21:46 Source: patient Mode of arrival: ambulatory Limitations: no limitations History of Present Illness: Patient is a 49-year-old male who presents the emergency department complaining of cough for the past couple of days. States it is mildly productive, he is also having dental pain. States he has been taking doxycycline for dental infection, he just darted this. Denies any fever, shortness of breath, sick contact exposure, chest pain, or other symptoms at this time. States he does not have a dentist and has been unable to find resources for one. MD elicited complaint: cough Onset (ago): day(s) Consistency: constant Severity: moderate Able to tolerate fluids by mouth: Yes Exacerbating factors: nothing Relieving factors: nothing Associated symptoms: Deny abdominal pain, chills, chest pain, diarrhea, ear or mastoid pain, fever(s), headache(s), nausea or vomiting Related Data Home Medications Medication Instructions Recorded Confirmed aspirin 81 mg tablet,delayed 81 mg PO QAM 04/07/20 06/13/24 release (Adult Aspirin Regimen) hydrocodone 10 mg-acetaminophen 1 tab PO .Five times daily PRN 03/07/24 06/13/24 325 mg tablet Previous Rx's Medication Instructions Recorded cpap supplies mask, headgear, #1 ea 01/10/24 tubing and filters nebulizer tubing kits #2 ea 01/10/24 albuterol sulfate 2.5 mg/3 mL 2.5 mg (3 mL) inhalation QID PRN 06/13/24 (0.083 %) solution for nebulization Shortness Of Breath #180 mL albuterol sulfate 90 mcg/actuation 2 puff inhalation Q6H PRN 06/13/24 aerosol inhaler Shortness Of Breath #8.5 grams atorvastatin 20 mg tablet 20 mg PO QAM #90 tabs 06/13/24 cetirizine 10 mg tablet 10 mg PO QAM #90 tabs 06/13/24 epinephrine 0.3 mg/0.3 mL 0.3 mg (0.3 mL) IM Q4H PRN 06/13/24 injection, auto-injector (EpiPen) Allergic Reaction #1 ea fluticasone propionate 220 1 puff inhalation BID PRN asthma 06/13/24 mcg/actuation HFA aerosol inhaler #12 grams fluticasone propionate 50 2 spray intranasal DAILY PRN 06/13/24 mcg/actuation nasal Allergy Symptoms #16 grams spray,suspension gabapentin 300 mg capsule 600 mg (2 x 300 mg) PO DAILY #180 06/13/24 caps isosorbide mononitrate 30 mg 30 mg PO BID #180 tabs 06/13/24 tablet,extended release 24 hr nitroglycerin 0.4 mg sublingual 0.4 mg sublingual Q5M PRN chest 06/13/24 tablet pain #25 tabs omeprazole 20 mg capsule,delayed 20 mg PO QAM #90 caps 06/13/24 release ondansetron HCl 8 mg tablet 8 mg PO TID PRN nausea and 06/13/24 vomiting #30 tabs ropinirole 0.5 mg tablet See Rx Instructions .Route 06/13/24 .COMPLEX #270 tabs ropinirole 4 mg tablet 4 mg PO DAILY #90 tabs 06/13/24 sertraline 50 mg tablet See Rx Instructions .Route 06/13/24 .COMPLEX #30 tabs tamsulosin 0.4 mg capsule 0.4 mg PO QAM #90 caps 06/13/24 varenicline 1 mg tablet (Chantix) 1 mg PO BID #180 tabs 06/13/24 benzonatate 200 mg capsule 200 mg PO BID PRN cough #20 caps 10/18/24 lidocaine HCl 2 % mucosal solution 10 ml mucous membrane DAILY PRN 10/18/24 (Lidocaine Viscous) pain #100 mL prednisone 20 mg tablet 60 mg (3 x 20 mg) PO ONCE 5 days 10/18/24 #15 tabs Allergies Allergy/AdvReac Type Severity Reaction Status Date / Time bee venom protein (honey bee) Allergy Unknown Unknown Verified 10/18/24 20:39 Penicillins Allergy Unknown Verified 10/18/24 20:39 Review of Systems General: Reports: 10 or more systems reviewed and unremarkable except in HPI and below Const: Denies: fever(s), chills or fatigue Eyes: Denies: change in vision ENMT: Reports: dental pain; Denies: throat pain, ear or mastoid pain or nasal discharge Card: Denies: chest pain, palpitations, swelling of feet/ankles or lightheadedness Resp: Reports: productive cough; Denies: dyspnea or wheezing GI: Denies: abdominal pain, nausea, vomiting, diarrhea or constipation : Denies: flank pain, difficulty urinating, dysuria or urinary frequency Musc: Denies: neck pain, back pain or joint pain Skin/Breast: Denies: rash Neuro: Denies: headache(s), numbness in extremities or weakness in extremities PFSH ED PFSH: Medical History Psychiatric care HTN (hypertension), benign Chest pain Shortness of breath Post-traumatic stress disorder, chronic Generalized anxiety disorder Panic disorder [episodic paroxysmal anxiety] Major depressive disorder, recurrent, moderate Family History Other CAD (coronary artery disease) Cancer Dementia Diabetes Family history of premature coronary artery disease Hyperlipidemia Hypertension Lung disease Stroke Denies family history of Chronic kidney disease (CKD) Social History Smoking and tobacco/nicotine status: current every day tobacco/nicotine user cigarettes Packs smoked per day: 0.5 Years cigarettes smoked: 30 Quit status (tobacco/nicotine): considering quitting Second hand smoke exposure: Yes Alcohol intake: never Substance/Drug Use: never Lives independently: Yes Household members: spouse Housing: House Marital status: Life Partner Current occupational status: unemployed Pets and animals: Yes Do you think of yourself as: Straight/Heterosexual Current gender identity: Male Special codi needs: No Agree to transfusion: Yes Physical Exam Const: COMMON NORMALS: no acute distress and healthy appearing GENERAL APPEARANCE: cooperative, comfortable and well developed HENMT: COMMON NORMALS: normocephalic, atraumatic, external ears normal, Normal external nose present and Normal nasal mucous membranes and turbinates present HEAD & SCALP: normal to inspection, normocephalic and atraumatic FACE & SINUS: normal facial exam and sinuses nontender NOSE: Normal external nose present, Normal nares present, No nasal polyps present and Normal nasal mucous membranes and turbinates present EXTERNAL EAR: Yes external ears normal MOUTH: Normal oral and palatal mucosa present TEETH & GINGIVA: Yes caries, Yes multiple restorations and Yes poor dentition THROAT: posterior oropharynx normal and tonsils normal OTHER: Area of reported dental discomfort, there is 1 eroded tooth with no gingival erythema or edema surrounding this. No fluctuance. Eye: COMMON NORMALS: EOMs intact bilaterally, conjunctivae normal and normal visual magana by confrontation GENERAL EYE: appearance normal, both eyes and all related structures CONJUNCTIVA: Yes conjunctivae normal Neck/C-Spine: COMMON NORMALS: full ROM, no lymphadenopathy, supple and no meningeal signs GENERAL: Yes normal visual inspection Chest: COMMONS NORMALS: normal inspection of the chest Resp: COMMON NORMALS: normal respiratory effort and clear to auscultation bilaterally EFFORT & INSPECTION: Yes able to speak in complete sentences and Yes Actively coughing AUSCULTATION: clear to auscultation bilaterally Cardio: COMMON NORMALS: regular rate, regular rhythm, S1 normal heart sound present and S2 normal heart sound present RATE: regular rate RHYTHM: regular rhythm HEART SOUNDS: S1 normal heart sound present, S2 normal heart sound present, no gallops, no murmurs and no rubs GI: COMMON NORMALS: Soft to palpation and No hepatosplenomegaly present INSPECTION: Yes normal to inspection PALPATION: Yes Soft to palpation and Yes No hepatosplenomegaly present Extremity: COMMON NORMALS: normal to inspection, full ROM and capillary refill normal Neuro: MENINGEAL SIGNS: Yes no meningeal signs Skin: COMMON NORMALS: no rashes or lesions noted GENERAL SKIN EXAM: no rashes or lesions noted Course Vital Signs: Vital signs: Vital Signs Temperature 98.3 F 10/18/24 20:32 Pulse Rate 94 10/18/24 20:32 Respiratory Rate 18 10/18/24 20:32 Blood Pressure 134/91 10/18/24 20:32 Pulse Oximetry 98 10/18/24 20:32 Oxygen Delivery Me thod Room Air 10/18/24 20:32 MDM - URI/Sore Throat Medical Decision Making This patient has had a productive cough for the past few days, he is currently on doxycycline for presumed dental infection. Area of reported dental pain, no clinical signs of an abscess but he does have very poor dentition. Will treat with topical viscous lidocaine but he needs to follow-up with a dentist for further evaluation long-term. With his reported cough, his flu COVID and RSV swab was negative though this likely still is a viral. Could potentially be an acute bronchitis, however he is already on antibiotics and I believe doxycycline would cover appropriately. Will treat with steroids as well as medication for his cough. Will have him follow-up with primary care and return with any new or worsening. His lungs were clear to auscultation, do not suspect pneumonia or systemic infection at this time. Lab Data Laboratory Results Coronavirus (PCR) Negative (Negative) 10/18/24 20:35 Influenza A (PCR) Negative (Negative) 10/18/24 20:35 Influenza Type B (PCR) Negative (Negative) 10/18/24 20:35 RSV (PCR) Negative (Negative) 10/18/24 20:35 No radiology studies performed this visit Discharge Plan Discharge Patient Disposition: Home Clinical Impression: Pain, dental, Viral infection Condition: Stable Prescriptions: New prednisone 20 mg tablet 60 mg PO ONCE 5 Days Qty: 15 0RF lidocaine HCl [Lidocaine Viscous] 2 % solution 10 ml mucous membrane DAILY PRN (Reason: pain) Qty: 100 0RF benzonatate 200 mg capsule 200 mg PO BID PRN (Reason: cough) Qty: 20 0RF No Action aspirin [Adult Aspirin Regimen] 81 mg tablet,delayed release (DR/EC) 81 mg PO QAM hydrocodone-acetaminophen 10-325 mg tablet 1 tab PO .Five times daily PRN albuterol sulfate 90 mcg/actuation HFA aerosol inhaler 2 puff INHALATION Q6H PRN (Reason: Shortness Of Breath) Qty: 8.5 3RF albuterol sulfate 2.5 mg /3 mL (0.083 %) solution for nebulization 2.5 mg INHALATION QID PRN (Reason: Shortness Of Breath) Qty: 180 3RF atorvastatin 20 mg tablet 20 mg PO QAM Qty: 90 3RF cetirizine 10 mg tablet 10 mg PO QAM Qty: 90 3RF EpiPen 0.3 mg/0.3 mL auto-injector 0.3 mg IM Q4H PRN (Reason: Allergic Reaction) Qty: 1 3RF fluticasone propionate 220 mcg/actuation HFA aerosol inhaler 1 puff INHALATION BID PRN (Reason: asthma) Qty: 12 3RF fluticasone propionate 50 mcg/actuation spray,suspension 2 spray INTRANASAL DAILY PRN (Reason: Allergy Symptoms) Qty: 16 3RF gabapentin 300 mg capsule 600 mg PO DAILY Qty: 180 2RF isosorbide mononitrate 30 mg tablet extended release 24 hr 30 mg PO BID Qty: 180 3RF nitroglycerin 0.4 mg tablet, sublingual 0.4 mg sublingual Q5M PRN (Reason: chest pain) Qty: 25 2RF Rx Instructions: do not exceed 3 doses per episode omeprazole 20 mg capsule,delayed release(DR/EC) 20 mg PO QAM Qty: 90 2RF ondansetron HCl 8 mg tablet 8 mg PO TID PRN (Reason: nausea and vomiting) Qty: 30 2RF ropinirole 4 mg tablet 4 mg PO DAILY Qty: 90 6RF ropinirole 0.5 mg tablet See Rx Instructions .ROUTE .COMPLEX Qty: 270 3RF Rx Instructions: 0.5mg po qam and 1mg po at bedtime sertraline 50 mg tablet See Rx Instructions .ROUTE .COMPLEX Qty: 30 1RF Dose Instruction: TAKE ONE TABLET BY MOUTH ONCE DAILY Rx Instructions: TAKE ONE TABLET BY MOUTH ONCE DAILY tamsulosin 0.4 mg capsule 0.4 mg PO QAM Qty: 90 3RF varenicline [Chantix] 1 mg tablet 1 mg PO BID Qty: 180 2RF Rx Instructions: (as directed) (DME) cpap supplies mask, headgear, tubing and filters See Rx Instructions .Route .MEDSUPPLY Qty: 1 0RF Rx Instructions: As directed (DME) nebulizer tubing kits See Rx Instructions .Route .MEDSUPPLY Qty: 2 6RF Rx Instructions: As directed Discharge Orders: Discharge ED (Routine); Ordered 10/18/24 Ordered By: Shahriar Reardon Referrals: Lola Rivera MD [Primary Care Provider] - Activity Restrictions/Additional Instructions: Use dental resources to establish with a dentist and follow-up as discussed. Continue taking doxycycline. Take prednisone. Tessalon Perles for cough. Apply the topical viscous lidocaine for your dental pain. Follow-up with primary care and return with any new or worsening. 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
[2024-10-18] MEDS: benzonatate 100 mg Capsule 200 MG PO (22:36)
[2024-10-18] MEDS: lidocaine 2% viscous 15 mL UDC TOPICAL (22:38)
[2024-10-18] MEDS: dexamethasone 10 mg/mL INJ IM (22:38)
[2024-10-18 22:45] VITALS: BP 131/89; PULSE 89; RESP 16; O2SAT 99
== END 2024-10-18 22:44 | disposition home or self-care (01) ==
PROVIDERS: General Practice; Emergency Provider Physician Assistant; PCP Family Medicine
DX: K08.89 Other specified disorders of teeth and supporting structures (principal); B34.9 Viral infection, unspecified; Z79.82 Long term (current) use of aspirin; Z11.52 Encounter for screening for COVID-19; F17.210 Nicotine dependence, cigarettes, uncomplicated; I10 Essential (primary) hypertension
CPT/HCPCS: 87637; 96372; 99284; J1100

== ENCOUNTER 2024-12-19 00:25 | Emergency (ER) | payer MEDICAID, SELFPAY ==
[2024-12-19 00:30] VITALS: BP 141/92; PULSE 88; RESP 14; TEMP 36.6; O2SAT 96
--- NOTE | 2024-12-19 00:59 | W.ED.HEATRA ---
HPI - Head Injury General: Chief complaint: Head Injury Stated complaint: Head Injury Time Seen by Provider: 12/19/24 00:47 History of Present Illness: Patient presents to the ER with a shallow laceration on top of his head after he bumped his head on the trunk when he stood up. Patient does use aspirin for his heart but no other blood thinners. Bleeding is controlled. Patient did not loses consciousness. Related Data Home Medications ?Medication ?Instructions ?Recorded ?Confirmed aspirin 81 mg tablet,delayed 81 mg PO QAM 04/07/20 06/13/24 release (Adult Aspirin Regimen) hydrocodone 10 mg-acetaminophen 1 tab PO .Five times daily PRN 03/07/24 06/13/24 325 mg tablet Previous Rx's ?Medication ?Instructions ?Recorded cpap supplies mask, headgear, #1 ea 01/10/24 tubing and filters nebulizer tubing kits #2 ea 01/10/24 albuterol sulfate 2.5 mg/3 mL 2.5 mg (3 mL) inhalation QID PRN 06/13/24 (0.083 %) solution for nebulization Shortness Of Breath #180 mL albuterol sulfate 90 mcg/actuation 2 puff inhalation Q6H PRN 06/13/24 aerosol inhaler Shortness Of Breath #8.5 grams atorvastatin 20 mg tablet 20 mg PO QAM #90 tabs 06/13/24 cetirizine 10 mg tablet 10 mg PO QAM #90 tabs 06/13/24 epinephrine 0.3 mg/0.3 mL 0.3 mg (0.3 mL) IM Q4H PRN 06/13/24 injection, auto-injector (EpiPen) Allergic Reaction #1 ea fluticasone propionate 220 1 puff inhalation BID PRN asthma 06/13/24 mcg/actuation HFA aerosol inhaler #12 grams fluticasone propionate 50 2 spray intranasal DAILY PRN 06/13/24 mcg/actuation nasal Allergy Symptoms #16 grams spray,suspension gabapentin 300 mg capsule 600 mg (2 x 300 mg) PO DAILY #180 06/13/24 caps isosorbide mononitrate 30 mg 30 mg PO BID #180 tabs 06/13/24 tablet,extended release 24 hr nitroglycerin 0.4 mg sublingual 0.4 mg sublingual Q5M PRN chest 06/13/24 tablet pain #25 tabs omeprazole 20 mg capsule,delayed 20 mg PO QAM #90 caps 06/13/24 release ondansetron HCl 8 mg tablet 8 mg PO TID PRN nausea and 06/13/24 vomiting #30 tabs ropinirole 0.5 mg tablet See Rx Instructions .Route 06/13/24 .COMPLEX #270 tabs ropinirole 4 mg tablet 4 mg PO DAILY #90 tabs 06/13/24 sertraline 50 mg tablet See Rx Instructions .Route 06/13/24 .COMPLEX #30 tabs tamsulosin 0.4 mg capsule 0.4 mg PO QAM #90 caps 06/13/24 varenicline tartrate 1 mg tablet 1 mg PO BID #180 tabs 06/13/24 (Chantix) benzonatate 200 mg capsule 200 mg PO BID PRN cough #20 caps 10/18/24 lidocaine HCl 2 % mucosal solution 10 ml mucous membrane DAILY PRN 10/18/24 (Lidocaine Viscous) pain #100 mL Allergies Allergy/AdvReac Type Severity Reaction Status Date / Time bee venom protein (honey bee) Allergy Unknown Unknown Verified 12/19/24 00:34 Penicillins Allergy Unknown Verified 12/19/24 00:34 Review of Systems General: Reports: 10 or more systems reviewed and unremarkable except in HPI and below PFSH ED PFSH: Medical History Psychiatric care HTN (hypertension), benign Chest pain Shortness of breath Post-traumatic stress disorder, chronic Generalized anxiety disorder Panic disorder [episodic paroxysmal anxiety] Major depressive disorder, recurrent, moderate Family History Other CAD (coronary artery disease) Cancer Dementia Diabetes Family history of premature coronary artery disease Hyperlipidemia Hypertension Lung disease Stroke Denies family history of Chronic kidney disease (CKD) Social History Smoking and tobacco/nicotine status: current every day tobacco/nicotine user cigarettes Packs smoked per day: 0.5 Years cigarettes smoked: 30 Quit status (tobacco/nicotine): considering quitting Second hand smoke exposure: Yes Alcohol intake: never Substance/Drug Use: never Lives independently: Yes Household members: spouse Housing: House Marital status: Life Partner Current occupational status: unemployed Pets and animals: Yes Do you think of yourself as: Straight/Heterosexual Current gender identity: Male Special codi needs: No Agree to transfusion: Yes Physical Exam Const: COMMON NORMALS: no acute distress, average body habitus, patient oriented x3, no limitations, healthy appearing, alert and well nourished HENMT: COMMON NORMALS: normocephalic, hearing grossly normal bilaterally, external ears normal, Normal external nose present, moist oral mucous membranes and oropharynx normal; head/scalp not atraumatic (Small superficial 1 cm laceration top of head bleeding is controlled) HEAD & SCALP: normocephalic; not atraumatic (Small superficial 1 cm laceration top of head bleeding is controlled) NOSE: Normal external nose present EXTERNAL EAR: Yes external ears normal Eye: COMMON NORMALS: Equal, round and reactive pupils present, EOMs intact bilaterally, conjunctivae normal and no scleral icterus CONJUNCTIVA: Yes conjunctivae normal PUPIL: Yes Equal, round and reactive pupils present Neck/C-Spine: COMMON NORMALS: no JVD Chest: COMMONS NORMALS: normal inspection of the chest and normal palpation of entire chest wall Resp: COMMON NORMALS: normal respiratory effort, No retractions, No use of accessory muscles and clear to auscultation bilaterally AUSCULTATION: clear to auscultation bilaterally Cardio: COMMON NORMALS: no JVD, regular rate, regular rhythm, S1 normal heart sound present, S2 normal heart sound present, No gallops present (Cardio), No clicks present (Cardio), No murmurs present (Cardio) and No rub (Cardio) RATE: regular rate RHYTHM: regular rhythm HEART SOUNDS: S1 normal heart sound present and S2 normal heart sound present Neuro: COMMON NORMALS: patient oriented x3 SENSORIUM/ORIENTATION: Yes alert Course Vital Signs: Vital signs: Vital Signs Temperature 97.8 F 12/19/24 00:30 Pulse Rate 88 12/19/24 00:30 Respiratory Rate 14 12/19/24 00:30 Blood Pressure 141/92 12/19/24 00:30 Pulse Oximetry 96 12/19/24 00:30 MDM - Head Injury Medcial Decision Making Small laceration on top of head bleeding was controlled. Dermabond was applied with no complications. Patient be discharged home Medical Records I reviewed the patient's medical records. Lab Data I reviewed the patient's lab results. No radiology studies performed this visit Discharge Plan Discharge Patient Disposition: Home Clinical Impression: Laceration of scalp Qualifiers: Encounter type: initial encounter Qualified Code(s): S01.01XA - Laceration without foreign body of scalp, initial encounter Condition: Stable Prescriptions: No Action aspirin [Adult Aspirin Regimen] 81 mg tablet,delayed release (DR/EC) 81 mg PO QAM hydrocodone-acetaminophen 10-325 mg tablet 1 tab PO .Five times daily PRN albuterol sulfate 90 mcg/actuation HFA aerosol inhaler 2 puff INHALATION Q6H PRN (Reason: Shortness Of Breath) Qty: 8.5 3RF albuterol sulfate 2.5 mg /3 mL (0.083 %) solution for nebulization 2.5 mg INHALATION QID PRN (Reason: Shortness Of Breath) Qty: 180 3RF atorvastatin 20 mg tablet 20 mg PO QAM Qty: 90 3RF cetirizine 10 mg tablet 10 mg PO QAM Qty: 90 3RF EpiPen 0.3 mg/0.3 mL auto-injector 0.3 mg IM Q4H PRN (Reason: Allergic Reaction) Qty: 1 3RF fluticasone propionate 220 mcg/actuation HFA aerosol inhaler 1 puff INHALATION BID PRN (Reason: asthma) Qty: 12 3RF fluticasone propionate 50 mcg/actuation spray,suspension 2 spray INTRANASAL DAILY PRN (Reason: Allergy Symptoms) Qty: 16 3RF gabapentin 300 mg capsule 600 mg PO DAILY Qty: 180 2RF isosorbide mononitrate 30 mg tablet extended release 24 hr 30 mg PO BID Qty: 180 3RF nitroglycerin 0.4 mg tablet, sublingual 0.4 mg sublingual Q5M PRN (Reason: chest pain) Qty: 25 2RF Rx Instructions: do not exceed 3 doses per episode omeprazole 20 mg capsule,delayed release(DR/EC) 20 mg PO QAM Qty: 90 2RF ondansetron HCl 8 mg tablet 8 mg PO TID PRN (Reason: nausea and vomiting) Qty: 30 2RF ropinirole 4 mg tablet 4 mg PO DAILY Qty: 90 6RF ropinirole 0.5 mg tablet See Rx Instructions .ROUTE .COMPLEX Qty: 270 3RF Rx Instructions: 0.5mg po qam and 1mg po at bedtime sertraline 50 mg tablet See Rx Instructions .ROUTE .COMPLEX Qty: 30 1RF Dose Instruction: TAKE ONE TABLET BY MOUTH ONCE DAILY Rx Instructions: TAKE ONE TABLET BY MOUTH ONCE DAILY tamsulosin 0.4 mg capsule 0.4 mg PO QAM Qty: 90 3RF varenicline tartrate [Chantix] 1 mg tablet 1 mg PO BID Qty: 180 2RF Rx Instructions: (as directed) (DME) cpap supplies mask, headgear, tubing and filters See Rx Instructions .Route .MEDSUPPLY Qty: 1 0RF Rx Instructions: As directed (DME) nebulizer tubing kits See Rx Instructions .Route .MEDSUPPLY Qty: 2 6RF Rx Instructions: As directed lidocaine HCl [Lidocaine Viscous] 2 % solution 10 ml mucous membrane DAILY PRN (Reason: pain) Qty: 100 0RF benzonatate 200 mg capsule 200 mg PO BID PRN (Reason: cough) Qty: 20 0RF Discharge Orders: Discharge ED (Routine); Ordered 12/19/24 Ordered By: Federico Tavera Referrals: Jatin Martinez MD [Primary Care Provider] - 1 week Patient Instructions: Scalp Laceration Activity Restrictions/Additional Instructions: Thank you for choosing [facility] for your healthcare needs today. Please realize that you were seen in the emergency department and that we are providing you with an emergency medical screening exam and this may not be a complete and all exclusive of all testing and/or medical workup we may need to determine your element or severity of your illness. It is very important that you follow-up as instructed with your primary care provider or specialist for the additional evaluation and to discuss your medical treatment plan. You may return to the emergency department should you have concerns or if your condition changes or worsens in any way. 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
[2024-12-19 01:08] VITALS: BP 132/84; PULSE 84; O2SAT 91
== END 2024-12-19 01:10 | disposition home or self-care (01) ==
PROVIDERS: Emergency Provider Emergency Medicine; PCP Internal Medicine
DX: S01.01XA Laceration without foreign body of scalp, initial encounter (principal); Z79.82 Long term (current) use of aspirin; F17.210 Nicotine dependence, cigarettes, uncomplicated; I10 Essential (primary) hypertension; X58.XXXA Exposure to other specified factors, initial encounter
CPT/HCPCS: 99283